=== PATIENT | female | born 1965 | race Caucasian/White ===

== ENCOUNTER 2020-01-07 22:00 | Emergency (ER) | payer MEDICAID ==
--- NOTE | 2020-01-07 23:35 | EDM.PDOC ---
ED [facility] GENERAL MEDICAL PROBLEM - General Chief Complaint: Cardiovascular Problem Stated Complaint: SWELLING IN LOWER LEGS Time Seen by Provider: 01/07/20 22:06 Source of Information: Reports: Patient History Limitations: Reports: No Limitations - History of Present Illness INITIAL COMMENTS - FREE TEXT/NARRATIVE: 54-year-old female with no past medical history presenting with lower extremity edema. Patient reports a 3-month history of intermittent lower extremity edema. She states that she has taken to road trips from [place] to [place] in the past 2 months and notes intermittent swelling of both lower legs. She feels that her left leg is more swollen than the right. She complains of worsening swelling and pain. Patient denies history of venous thromboembolism, hemoptysis, recent surgery or immobilization or long travel, history of active malignancy, or hormonal medication/product usage. No prior history of DVT or PE. No known history of hepatic disease, renal disease. ROS: A 10-point review of systems was negative, except as noted in the HPI (or in the ROS section of this note). Past medical history: Reviewed, no additional pertinent history. Surgical history: Reviewed in system, no additional pertinent history. Social history: Reviewed in system, no additional pertinent history. Family history: Reviewed in system, no additional pertinent history. PHYSICAL EXAM Vital signs reviewed. Nursing notes reviewed. Constitutional: Awake, alert, non-distressed. Head: Normocephalic, atraumatic. Eyes: EOMI, conjunctiva normal, no discharge, no scleral icterus. Ears, Nose, Throat: External ears and nose normal, moist oral mucosa. Cardiovascular: 2+ DP pulses bilaterally, capillary refill less than 2 seconds. Bilateral pitting edema to the bilateral extremities, right greater than left. Pulmonary: normal work of breathing, no accessory muscle use. Abdomen/GI: Soft, nontender, nondistended, no guarding or rigidity, no masses. Musculoskeletal: No deformities. Integumentary: Appropriate color for ethnicity, warm, dry, no pallor or jaundice, no rash. Neurologic: Alert, answering questions appropriately, normal speech, no facial droop, moving all extremities well. Psychiatric: Appropriate mood and affect, normal thought process. Left Lower Leg Pain Score (Numeric/FACES): 6 - Related Data Allergies Allergy/AdvReac Type Severity Reaction Status Date / Time No Known Allergies Allergy Verified 01/07/20 22:18 Home Meds: Home Meds Diclofenac Sodium [Voltaren] 75 mg PO DAILY 01/07/20 [History] Past Medical History Musculoskeletal History: Reports: Back Pain, Chronic, Other (See Below) Other Musculoskeletal History: 2 bulging discs in back Endocrine/Metabolic History: Reports: Obesity/BMI 30+ - Infectious Disease History Infectious Disease History: Reports: Chicken Pox - Past Surgical History Musculoskeletal Surgical History: Reports: Hip Replacement, Other (See Below) Other Musculoskeletal Surgeries/Procedures:: L hip x 3 Social & Family History - Family History Family Medical History: Noncontributory - Tobacco Use Smoking Status *Q: Never Smoker - Recreational Drug Use Recreational Drug Use: No ED ROS GENERAL - Review of Systems Review Of Systems: See Below ED EXAM, GENERAL - Physical Exam Exam: See Below EKG INTERPRETATION EKG Interpretation Comments: 12-Lead ECG Interpretation Acquired: 11:28 PM Rhythm: Sinus rhythm Rate: 72 bpm [place]: Normal Intervals: Normal Ectopy: None Ischemic Changes: None apparent RV Strain: No obvious RV strain pattern. ST Segments/T-Waves: Isolated T wave inversions in lead III Interpretation: Unremarkable Course - Vital Signs Text/Narrative:: Patient hemodynamically stable, afebrile, well-appearing, looks nontoxic. Differential diagnosis includes but is not limited to: DVT, congestive heart failure, hepatic failure, renal failure, nephrotic syndrome, hypothyroidism, myocardial infarction, lymphedema, medication side effect, and many others. hemodynamically stable, afebrile Work-up largely unrevealing. Normal cell lines. Elevated d-dimer with negative bilateral DVT ultrasound study. Electrolytes and renal function are normal. Hepatic markers are normal. Urinalysis shows no proteinuria or blood. Troponin and BNP are within normal limits. Twelve-lead EKG shows no evidence of old myocardial infarction. No evidence of a DVT, low suspicion for congestive heart failure, no evidence of hepatic or renal failure. Urinalysis does not show evidence of nephrotic syndrome. No evidence of a malignant or life-threatening cause of lower extremity edema at this point, symptoms are subacute. Discussed need to follow-up with a primary medical physician for reevaluation in the next few weeks. Discussed compression stockings, leg elevation, limiting sodium and fluid intake, and need for repeat DVT ultrasound study in about 1 week. Plan: Patient is stable to discharge home with outpatient primary care clinic follow-up. Strict emergency department return precautions were provided, patient indicated understanding. All questions were answered prior to departure. Discharged in good condition. Last Recorded V/S: Last Vital Signs Temp 36.2 C 01/07/20 22:09 Pulse 72 01/07/20 23:35 Resp 18 01/07/20 23:35 BP 135/80 01/07/20 23:35 Pulse Ox 97 01/07/20 23:35 - Orders/Labs/Meds Orders: Active Orders 24 hr Category Date Time Status EKG Documentation Completion [RC] STAT Care 01/07/20 23:09 Active Labs: Laboratory Tests 01/07/20 01/07/20 01/07/20 Range/Units 22:40 23:23 23:23 WBC 4.94 (4.0-11.0) K/uL RBC 3.88 L (4.30-5.90) M/uL Hgb 12.0 (12.0-16.0) g/dL Hct 36.1 (36.0-46.0) % MCV 93.0 (80.0-98.0) fL MCH 30.9 (27.0-32.0) pg MCHC 33.2 (31.0-37.0) g/dL RDW Std Deviation 47.4 (28.0-62.0) fl RDW Coeff of Marlys 14 (11.0-15.0) % Plt Count 234 (150-400) K/uL MPV 9.30 (7.40-12.00) fL Neut % (Auto) 61.2 (48.0-80.0) % Lymph % (Auto) 25.7 (16.0-40.0) % [place] % (Auto) 9.1 (0.0-15.0) % Eos % (Auto) 3.8 (0.0-7.0) % Baso % (Auto) 0.2 (0.0-1.5) % Neut # (Auto) 3.0 (1.4-5.7) K/uL Lymph # (Auto) 1.3 (0.6-2.4) K/uL [place] # (Auto) 0.5 (0.0-0.8) K/uL Eos # (Auto) 0.2 (0.0-0.7) K/uL Baso # (Auto) 0.0 (0.0-0.1) K/uL Nucleated RBC % 0.0 /100WBC Nucleated RBCs # 0 K/uL D-Dimer, Quantitative 0.57 H (0.0-0.50) mg/L FEU Sodium (136-145) mmol/L Potassium (3.5-5.1) mmol/L Chloride (98-107) mmol/L Carbon Dioxide (21.0-32.0) mmol/L BUN (7.0-18.0) mg/dL Creatinine (0.6-1.0) mg/dL Est Cr Clr Drug Dosing mL/min Estimated GFR (MDRD) ml/min Glucose (74-106) mg/dL Calcium (8.5-10.1) mg/dL Total Bilirubin (0.2-1.0) mg/dL AST (15-37) IU/L ALT (14-63) IU/L Alkaline Phosphatase (46-116) U/L Troponin I (0.000-0.056) ng/mL B-Natriuretic Peptide (<100) PG/ML Total Protein (6.4-8.2) g/dL Albumin (3.4-5.0) g/dL Globulin (2.6-4.0) g/dL Albumin/Globulin Ratio (0.9-1.6) Urine Color YELLOW Urine Appearance CLEAR Urine pH 6.0 (5.0-8.0) Ur Specific [place] >= 1.030 (1.001-1.035) Urine Protein NEGATIVE (NEGATIVE) mg/dL Urine Glucose (UA) NEGATIVE (NEGATIVE) mg/dL Urine Ketones NEGATIVE (NEGATIVE) mg/dL Urine Occult Blood NEGATIVE (NEGATIVE) Urine Nitrite NEGATIVE (NEGATIVE) Urine Bilirubin NEGATIVE (NEGATIVE) Urine Urobilinogen 0.2 (<2.0) EU/dL Ur Leukocyte Esterase NEGATIVE (NEGATIVE) 01/07/20 01/07/20 Range/Units 23:23 23:23 WBC (4.0-11.0) K/uL RBC (4.30-5.90) M/uL Hgb (12.0-16.0) g/dL Hct (36.0-46.0) % MCV (80.0-98.0) fL MCH (27.0-32.0) pg MCHC (31.0-37.0) g/dL RDW Std Deviation (28.0-62.0) fl RDW Coeff of Marlys (11.0-15.0) % Plt Count (150-400) K/uL MPV (7.40-12.00) fL Neut % (Auto) (48.0-80.0) % Lymph % (Auto) (16.0-40.0) % [place] % (Auto) (0.0-15.0) % Eos % (Auto) (0.0-7.0) % Baso % (Auto) (0.0-1.5) % Neut # (Auto) (1.4-5.7) K/uL Lymph # (Auto) (0.6-2.4) K/uL [place] # (Auto) (0.0-0.8) K/uL Eos # (Auto) (0.0-0.7) K/uL Baso # (Auto) (0.0-0.1) K/uL Nucleated RBC % /100WBC Nucleated RBCs # K/uL D-Dimer, Quantitative (0.0-0.50) mg/L FEU Sodium 142 (136-145) mmol/L Potassium 4.1 (3.5-5.1) mmol/L Chloride 107 (98-107) mmol/L Carbon Dioxide 26.1 (21.0-32.0) mmol/L BUN 13 (7.0-18.0) mg/dL Creatinine 0.9 (0.6-1.0) mg/dL Est Cr Clr Drug Dosing 75.48 mL/min Estimated GFR (MDRD) > 60.0 ml/min Glucose 95 (74-106) mg/dL Calcium 8.5 (8.5-10.1) mg/dL Total Bilirubin 0.3 (0.2-1.0) mg/dL AST 17 (15-37) IU/L ALT 26 (14-63) IU/L Alkaline Phosphatase 54 (46-116) U/L Troponin I < 0.050 (0.000-0.056) ng/mL B-Natriuretic Peptide 67 (<100) PG/ML Total Protein 6.6 (6.4-8.2) g/dL Albumin 3.4 (3.4-5.0) g/dL Globulin 3.2 (2.6-4.0) g/dL Albumin/Globulin Ratio 1.1 (0.9-1.6) Urine Color Urine Appearance Urine pH (5.0-8.0) Ur Specific [place] (1.001-1.035) Urine Protein (NEGATIVE) mg/dL Urine Glucose (UA) (NEGATIVE) mg/dL Urine Ketones (NEGATIVE) mg/dL Urine Occult Blood (NEGATIVE) Urine Nitrite (NEGATIVE) Urine Bilirubin (NEGATIVE) Urine Urobilinogen (<2.0) EU/dL Ur Leukocyte Esterase (NEGATIVE) Departure - Departure Time of Disposition: 01:10 Disposition: Home, Self-Care 01 Condition: Good Clinical Impression: Bilateral lower extremity edema Instructions: Edema, [id number] Referrals: [facility] - Family Practice [Provider Group] - 1 Week (For re-evaluation and possible repeat DVT ultrasound study.) Forms: ED Department Discharge Additional Instructions: You were seen in the emergency department for leg swelling. At this point there is no evidence of a blood clot or trouble with your heart, kidneys, or liver. Your blood work and labs look reassuring. Your blood clotting test was minimally elevated and I typically recommend that people see a primary doctor in about 1 week to have a repeat ultrasound study done to be sure that a new clot does not appear. In the meantime you can elevate your legs at night, you can use 30 mmHg compression stockings (available at medical supply stores or on the internet). I recommend trying to limit the amount of sodium (salt) intake to help with the swelling. Please return the emergency department immediately if your symptoms worsen or if you feel worse. Thank you for choosing the [facility] emergency department in [place] for your medical needs today. It was a pleasure caring for you. The following information is given to patients seen in the emergency department who are being discharged. This information is to outline your options for follow-up care. We provide all patients seen in our emergency department with a follow-up referral. The need for follow-up, as well as the timing and circumstances, are variable depending upon the specifics of your emergency department visit. If you don't have a primary care physician on staff, we will provide you with a referral. We always advise you to contact your personal physician following an emergency department visit to inform them of the circumstance of the visit and for follow-up with them and/or the need for any referrals to a consulting specialist. The emergency department will also refer you to a specialist when appropriate. This referral assures that you have the opportunity for follow-up care with a specialist. All of these measure are taken in an effort to provide you with optimal care, which includes your follow-up. Under all circumstances we always encourage you to contact your private physician who remains a resource for coordinating your care. When calling for follow-up care, please make the office aware that this follow-up is from your recent emergency room visit. If for any reason you are refused follow-up, please contact the [facility] Emergency Department at and asked to speak to the emergency department charge nurse. If you do not have a primary care physician that is caring for you, you can contact these clinics below to set up an appointment to establish care: [facility] - Primary Care [address] [place], [place] [id number] [place] [address] Sepsis Event Note (ED) - Evaluation Sepsis Screening Result: No Definite Risk - Focused Exam Vital Signs: Vital Signs Temp Pulse Resp BP Pulse Ox 01/07/20 23:35 72 18 135/80 97 01/07/20 22:09 36.2 C 75 18 150/74 H 96 - My Orders Last 24 Hours: My Active Orders 01/07/20 23:09 EKG Documentation Completion [RC] STAT - Assessment/Plan Last 24 Hours: My Active Orders 01/07/20 23:09 EKG Documentation Completion [RC] STAT
[2020-01-08 00:05] LABS: BLOOD UREA NITROGEN,BUN 13 mg/dL (7.0-18.0); CARBON DIOXIDE,CO2 26.1 mmol/L (21.0-32.0); CHLORIDE,CL 107 mmol/L (98-107); GLUCOSE RANDOM 95 mg/dL (74-106); POTASSIUM,K 4.1 mmol/L (3.5-5.1); SODIUM,NA 142 mmol/L (136-145)
--- NOTE | 2020-01-08 01:07 | US ---
INDICATION: Lower extremity edema TECHNIQUE: : Ultrasound venous duplex lower extremity bilateral. Compression venous exam was performed using warren-scale, color Doppler, and spectral Doppler imaging. COMPARISON: None available FINDINGS: Some of the images are limited due to body habitus. The bilateral common femoral veins, superficial femoral veins, popliteal veins, and visualized portions of the deep femoral, posterior tibial and peroneal veins, appear fully compressible, demonstrating color Doppler flow, flow variability and augmentation. Hypoechoic foci in regions of some of the compressed veins are reported to be artifactual, extravascular, by the gate technician. IMPRESSION: No definite sonographic evidence of a deep venous thrombosis in the bilateral lower extremities. Dictated by Sergey Pepe MD @ 01/08/2020 1:05:36 AM Dictated by: Sergey Pepe MD @ 01/08/2020 01:05:43 (Electronically Signed)
== END 2020-01-08 01:25 | disposition home or self-care (01) ==
LOC: MW.ED 22:00
DX: R60.0 Localized edema (principal); E66.9 Obesity, unspecified; Z68.39 Body mass index [BMI] 39.0-39.9, adult
CPT/HCPCS: 36415; 80053; 81003; 83880; 84484; 85025; 85379; 93005; 93970; 93970-26; 99282; 99284-25

== ENCOUNTER 2020-01-08 21:21 | Emergency (ER) | payer MEDICAID ==
[2020-01-08] MEDS ORDERED: Acetaminophen 500 MG Tab PO ONE (22:56)
[2020-01-08] MEDS ORDERED: Ibuprofen 400 MG Tab PO ONE (22:56)
--- NOTE | 2020-01-08 23:54 | CR ---
Indication: Patellar pain after fall Technique: Three views Comparison: None Findings: Bones: Alignment is normal. No fractures or bone lesions. Joint spaces: Small patellofemoral osteophytes. Minimal knee effusion. Soft tissues: Mild anterior soft tissue swelling. Dictated by Edgar Velazquez MD @ Jan 08 2020 11:52PM Signed by Dr. Edgar Velazquez @ Jan 08 2020 11:54PM
--- NOTE | 2020-01-08 23:56 | CR ---
Indication: Left hip pain after fall Technique: Three views, 4 films Comparison: None Findings: Status post left total hip replacement. No evidence of dislocation. No evidence of fracture. 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 Dictated by Edgar Velazquez MD @ Jan 08 2020 11:52PM Signed by Dr. Edgar Velazquez @ Jan 08 2020 11:56PM
--- NOTE | 2020-01-09 00:41 | EDM.PDOC ---
ED [facility]PI GENERAL MEDICAL PROBLEM - General Chief Complaint: Back Pain or Injury Stated Complaint: FELL AND HURT KNEE AND BACK Time Seen by Provider: 01/08/20 21:21 Source of Information: Reports: Patient, Old Records History Limitations: Reports: No Limitations - History of Present Illness INITIAL COMMENTS - FREE TEXT/NARRATIVE: 54-year-old female with status post left KIYA presenting with left lower extremity pain. Patient states that approximately 1 hour ago she was pushing a shopping cart when she slipped and fell, landing onto her knees. She arrives to the emergency department complaining of pain to the left knee and the left hip joint. She complains of pain over the superior aspect the left patella and the left medial joint line of the knee. Also complains of pain to the left buttock and the left lateral thigh. She has been able to bear some weight. No self treatment prior to arrival, no other complaints. Past medical history: Reviewed, no additional pertinent history. Surgical history: Reviewed in system, no additional pertinent history. Social history: Reviewed in system, no additional pertinent history. Family history: Reviewed in system, no additional pertinent history. PHYSICAL EXAM Vital signs reviewed. Nursing notes reviewed. Constitutional: Awake, alert, non-distressed. Head: Normocephalic, atraumatic. Eyes: EOMI, conjunctiva normal, no discharge, no scleral icterus. Ears, Nose, Throat: External ears and nose normal, moist oral mucosa. Cardiovascular: 2+ left DP pulse, capillary refill less than 2 seconds. Pulmonary: normal work of breathing, no accessory muscle use. Abdomen/GI: Soft, nontender, nondistended, no guarding or rigidity, no masses. Musculoskeletal: No deformities. Mild tenderness to palpation to the left knee at the anterior aspect of the medial joint line in the superior aspect of the left patella. Mild tenderness to palpation of the left lateral thigh and the left SI joint. Normal active range of motion of the left hip and knee joint. Back: Lumbar spine nontender Integumentary: Appropriate color for ethnicity, warm, dry, no pallor or jaundice, no rash. Neurologic: Alert, answering questions appropriately, normal speech, no facial droop, moving all extremities well. Sensation intact to light touch the left lower extremity. Psychiatric: Appropriate mood and affect, normal thought process. left knee Pain Score (Numeric/FACES): 7 - Related Data Allergies Allergy/AdvReac Type Severity Reaction Status Date / Time No Known Allergies Allergy Verified 01/08/20 21:53 Home Meds: Home Meds Diclofenac Sodium [Voltaren] 75 mg PO DAILY 01/07/20 [History] Past Medical History HEENT History: Reports: None Cardiovascular History: Reports: None Respiratory History: Reports: None Gastrointestinal History: Reports: None Genitourinary History: Reports: None ADMITTING OFFICE ESCORT History: Reports: None Musculoskeletal History: Reports: Back Pain, Chronic, Other (See Below) Other Musculoskeletal History: 2 bulging discs in back Neurological History: Reports: None Psychiatric History: Reports: None Endocrine/Metabolic History: Reports: Obesity/BMI 30+ 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 Hematologic History: Reports: None Immunologic History: Reports: None Oncologic (Cancer) History: Reports: None Dermatologic History: Reports: None - Infectious Disease History Infectious Disease History: Reports: None - Past Surgical History Head Surgeries/Procedures: Reports: None Female Surgical History: Reports: None Musculoskeletal Surgical History: Reports: Hip Replacement, Other (See Below) Other Musculoskeletal Surgeries/Procedures:: L hip x 3 Social & Family History - Family History Family Medical History: Noncontributory - Tobacco Use Smoking Status *Q: Never Smoker - Caffeine Use Caffeine Use: Reports: None - Recreational Drug Use Recreational Drug Use: No Review of Systems - Review of Systems Review Of Systems: See Below ED EXAM, GENERAL - Physical Exam Exam: See Below Course - Vital Signs Text/Narrative:: Patient hemodynamically stable, afebrile, well-appearing, looks nontoxic. Differential diagnosis includes but is not limited to: Fracture, dislocation, soft tissue injury, vascular injury, nerve injury, and many others. Neurovascularly intact in the left lower extremity. No sign of vascular compromise. No gross deformity. No evidence of wounds or soft tissue injury. Obtained x-rays of the left knee and the left hip. Left hip x-rays are unremarkable, surgical hardware appears stable. Small joint effusion around the left knee. Small amount of soft tissue swelling around the knee as well. No evidence of bony injury of the knee such as a fracture or dislocation. Patient has been able to bear weight although with pain. We will apply an elastic wrap to the left knee joint. She is stable to discharge home with [id number] Tylenol and Motrin as needed for pain. We will instruct her to follow-up with a primary medical doctor in the next few days for reevaluation if her symptoms do not improve. Plan: Patient is stable to discharge home with outpatient primary care clinic follow-up. Strict emergency department return precautions were provided, patient indicated understanding. All questions were answered prior to departure. Discharged in good condition. Last Recorded V/S: Last Vital Signs Temp 36.0 C L 01/08/20 21:53 Pulse 102 H 01/08/20 21:53 Resp 18 01/08/20 21:53 BP 139/87 01/08/20 21:53 Pulse Ox 95 01/08/20 21:53 - Orders/Labs/Meds Orders: Active Orders 24 hr Category Date Time Status Elastic Wrap [OM.PC] Stat Oth 01/09/20 00:36 Ordered Meds: Medications Discontinued Medications Generic Name Dose Route Start Last Admin Trade Name Freq PRN Reason Stop Dose Admin Acetaminophen 1,000 mg 01/08/20 22:56 01/08/20 23:24 Tylenol Extra Strength PO 01/08/20 22:57 1,000 mg ONETIME ONE Administration Ibuprofen 400 mg 01/08/20 22:56 01/08/20 23:24 Motrin PO 01/08/20 22:57 400 mg ONETIME ONE Administration Departure - Departure Time of Disposition: 00:39 Disposition: Home, Self-Care 01 Condition: Good Clinical Impression: Acute pain of left knee, Acute pain of left hip Accidental fall Qualifiers: Encounter type: initial encounter Qualified Code(s): W19.XXXA - Unspecified fall, initial encounter - Discharge Information *PRESCRIPTION DRUG MONITORING PROGRAM REVIEWED*: Not Applicable *COPY OF PRESCRIPTION DRUG MONITORING REPORT IN PATIENT CHIN: Not Applicable Instructions: Acute Knee Pain, Adult, Hip Pain, Musculoskeletal Pain, Joint Pain Referrals: [facility] - Family Practice [Provider Group] - 1 Week (As needed, if symptoms do not improve.) Additional Instructions: You were seen in the emergency department for left hip and knee pain after a fall. Your x-rays do not show broken bone but you do have some swelling around the left knee joint. This is not uncommon after a fall onto your knees. There is no evidence of a broken bone and we do not need to put you in a splint but we will wrap your left knee for comfort and to help control swelling. You can take [id number] Tylenol or Motrin as directed on the package for pain. Please follow-up with a family medicine clinic in the next 1 to 2 weeks if your symptoms do not improve. Please return the emergency department immediately if your symptoms worsen or if you feel worse. Thank you for choosing the [facility] emergency department in [place] for your medical needs today. It was a pleasure caring for you. The following information is given to patients seen in the emergency department who are being discharged. This information is to outline your options for fo llow-up care. We provide all patients seen in our emergency department with a follow-up referral. The need for follow-up, as well as the timing and circumstances, are variable depending upon the specifics of your emergency department visit. If you don't have a primary care physician on staff, we will provide you with a referral. We always advise you to contact your personal physician following an emergency department visit to inform them of the circumstance of the visit and for follow-up with them and/or the need for any referrals to a consulting specialist. The emergency department will also refer you to a specialist when appropriate. This referral assures that you have the opportunity for follow-up care with a specialist. All of these measure are taken in an effort to provide you with optimal care, which includes your follow-up. Under all circumstances we always encourage you to contact your private physician who remains a resource for coordinating your care. When calling for follow-up care, please make the office aware that this follow-up is from your recent emergency room visit. If for any reason you are refused follow-up, please contact the [facility] Emergency Department at and asked to speak to the emergency department charge nurse. If you do not have a primary care physician that is caring for you, you can contact these clinics below to set up an appointment to establish care: [facility] - Primary Care [address] [place] [address] [facility] [address] [place] [address] Sepsis Event Note (ED) - Evaluation Sepsis Screening Result: No Definite Risk - Focused Exam Vital Signs: Vital Signs Temp Pulse Resp BP Pulse Ox 01/08/20 21:53 36.0 C L 102 H 18 139/87 95 - My Orders Last 24 Hours: My Active Orders 01/09/20 00:36 Elastic Wrap [OM.PC] Stat - Assessment/Plan Last 24 Hours: My Active Orders 01/09/20 00:36 Elastic Wrap [OM.PC] Stat
== END 2020-01-09 00:48 | disposition home or self-care (01) ==
LOC: MW.ED 21:21
DX: M25.562 Pain in left knee (principal); M25.552 Pain in left hip; M79.652 Pain in left thigh; M53.3 Sacrococcygeal disorders, not elsewhere classified; E66.9 Obesity, unspecified; W01.0XXA Fall on same level from slipping, tripping and stumbling without subsequent striking against object, initial encounter
CPT/HCPCS: 73502; 73562; 99283; A9270; 99282

== ENCOUNTER 2020-01-17 18:02 | Emergency (ER) | payer MEDICAID ==
--- NOTE | 2020-01-17 19:02 | EDM.PDOC ---
ED HPI GENERAL MEDICAL PROBLEM - General Chief Complaint: Lower Extremity Injury/Pain Stated Complaint: LT KNEE PAIN Time Seen by Provider: 01/17/20 19:00 Source of Information: Reports: Patient History Limitations: Reports: No Limitations - History of Present Illness INITIAL COMMENTS - FREE TEXT/NARRATIVE: HISTORY AND PHYSICAL: History of present illness: Patient is a 54-year-old female who presents to the emergency room with complaints of left knee pain. She states approximately a week ago she was pushing a shopping cart and had fallen onto her knees. She denies hitting her head or having any loss of consciousness. She was seen in the emergency room and had an x-ray of the knee and hip which were both negative. She states that the pain has continued and she feels a burning sensation to the medial aspect of the knee. She has been ambulatory and able to bear weight although this does aggravate the pain. Patient denies any fever, chills, headache, change in vis ion, syncope or near syncope. Denies any chest pain, back pain, shortness of breath or cough. Denies any GI or symptoms. Patient has been eating and drinking appropriately. Review of systems: As per history of present illness and below otherwise all systems reviewed and negative. Past medical history: As per history of present illness and as reviewed below otherwise noncontributory. Surgical history: As per history of present illness and as reviewed below otherwise noncontributory. Social history: See social history for further information Family history: As per history of present illness and as reviewed below otherwise noncontributory. Physical exam: General: Well developed and well nourished. Alert and orientated x 3. Nontoxic in appearance and in no acute distress. Vital signs are stable and have been reviewed by me. Nursing notes were reviewed. HEENT: Atraumatic, normocephalic, pupils equal and reactive bilaterally, negative for conjunctival pallor or scleral icterus, mucous membranes moist, TMs normal bilaterally, throat clear, neck supple, nontender, trachea midline. No drooling or trismus noted. No meningeal signs. No hot potato voice noted. Lungs: Clear to auscultation, breath sounds equal bilaterally, chest nontender. Normal work of breathing, no accessory muscles used. Heart: S1S2, regular rate and rhythm without overt murmur Abdomen: Soft, nondistended, nontender. Negative for masses or hepatosplenomegaly. Negative for costovertebral tenderness. Skin: Intact, warm, dry. No lesions or rashes noted. Hematologic: No petechiae or purpra. Mucosa appropriate color and normal nail bed color and refill. Extremities: Atraumatic, moves all extremities per self without difficulty or deficits, pain with palpation of the left medial aspect of knee. Mild popliteal tenderness. Strong pedal and pretibial pulse. + CMS, negative for cords or calf pain. Neurovascular unremarkable. Neuro: Awake, alert, oriented. Cranial nerves II through XII unremarkable. Ce rebellum unremarkable. Motor and sensory unremarkable throughout. Exam nonfocal. Psychiatric: Mood and affect are appropriate. Normal thought process. Answering questions appropriately. Notes: X-ray shows no acute findings. We did discuss the likelihood of her needing further imaging such as an MRI as outpatient. Crutches given so patient can be nonweightbearing until followed up with orthopedics. Reassessment at the time of disposition demonstrates that the patient is in no acute distress. The patient has remained stable throughout the entire ED visit and is without objective evidence for acute process requiring urgent intervention or hospitalization. The patient is stable for discharge, counseling was provided and we discussed in great detail signs and symptoms that would prompt them to return to the Emergency Department. Medication, follow up and supportive care measures were reviewed and discussed. Voices understanding and is agreeable to plan of care. Denies any further questions or concerns at this time. Diagnostics: Knee x-ray Therapeutics: Crutches Prescription: Tramadol Impression: Knee injury, Left Plan: 1. Your x-ray is normal. You may need an MRI as an outpatient, please establish care so you can have this ordered if you continue to have pain. Rest, ice, elevate the affected extremity. Please use the crutches as directed. 2. Tylenol and/or Ibuprofen as needed for pain management. 3. Follow up with the Orthopedic provider as we discussed. Return to the ED as needed and as discussed. Definitive disposition and diagnosis as appropriate pending reevaluation and review of above. 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 Musculoskeletal History: Reports: Back Pain, Chronic, Other (See Below) Other Musculoskeletal History: 2 bulging discs in back Neurological History: Reports: None Psychiatric History: Reports: None Endocrine/Metabolic History: Reports: Obesity/BMI 30+ 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 Hematologic History: Reports: None Immunologic History: Reports: None Oncologic (Cancer) History: Reports: None Dermatologic History: Reports: None - Infectious Disease History Infectious Disease History: Reports: Chicken Pox - Past Surgical History Head Surgeries/Procedures: Reports: None Female Surgical History: Reports: None Musculoskeletal Surgical History: Reports: Hip Replacement, Other (See Below) Other Musculoskeletal Surgeries/Procedures:: L hip x 3 Social & Family History - Family History Family Medical History: Noncontributory - Caffeine Use Caffeine Use: Reports: Coffee - Recreational Drug Use Recreational Drug Use: No Review of Systems - Review of Systems Review Of Systems: Comprehensive ROS is negative, except as noted in HPI. ED EXAM, GENERAL - Physical Exam Exam: See Below (See dictation) Course - Vital Signs Last Recorded V/S: Last Vital Signs Temp 98.6 F 01/17/20 18:35 Pulse 89 01/17/20 18:35 Resp 20 01/17/20 18:35 BP 149/92 H 01/17/20 18:35 Pulse Ox 92 L 01/17/20 18:35 - Orders/Labs/Meds Orders: Active Orders 24 hr Category Date Time Status DME for Discharge [COMM] Stat Oth 01/17/20 19:03 Ordered Meds: Medications Discontinued Medications Generic Name Dose Route Start Last Admin Trade Name Freq PRN Reason Stop Dose Admin Hydrocodone Bitart/Acetaminophen 1 tab 01/17/20 19:03 01/17/20 19:17 [place] 325-5 Mg PO 01/17/20 19:04 1 tab ONETIME ONE Administration Departure - Departure Time of Disposition: 20:10 Disposition: Home, Self-Care 01 Clinical Impression: Left knee injury Qualifiers: Encounter type: subsequent encounter Qualified Code(s): S89.92XD - Unspecified injury of left lower leg, subsequent encounter - Discharge Information Instructions: Knee Sprain, Adult, [id number] Referrals: PCP,None [Primary Care Provider] - Forms: ED Department Discharge Additional Instructions: The following information is given to patients seen in the emergency department who are being discharged to home. This information is to outline your options for follow-up care. We provide all patients seen in our emergency department with a follow-up referral. The need for follow-up, as well as the timing and circumstances, are variable depending upon the specifics of your emergency department visit. If you don't have a primary care physician on staff, we will provide you with a referral. We always advise you to contact your personal physician following an emergency department visit to inform them of the circumstance of the visit and for follow-up with them and/or the need for any referrals to a consulting specialist. The emergency department will also refer you to a specialist when appropriate. This referral assures that you have the opportunity for follow-up care with a specialist. All of these measure are taken in an effort to provide you with optimal care, which includes your follow-up. Under all circumstances we always encourage you to contact your private physician who remains a resource for coordinating your care. When calling for follow-up care, please make the office aware that this follow-up is from your recent emergency room visit. If for any reason you are refused follow-up, please contact the [facility] Emergency Department at and asked to speak to the emergency department charge nurse. [facility] Primary Care [address] [place] [address] [place] [address] Thank you for choosing the [facility] emergency department in [place] for your medical needs today. It was a pleasure caring for you. Today you were seen in the emergency department for knee pain. 1. Your x-ray is normal. You may need an MRI as an outpatient, please establish care so you can have this ordered if you continue to have pain. Rest, ice, elevate the affected extremity. Please use the crutches as directed. 2. Tylenol and/or Ibuprofen as needed for pain management. 3. Follow up with the Orthopedic provider as we discussed. Return to the ED as needed and as discussed. Sepsis Event Note (ED) - Evaluation Sepsis Screening Result: No Definite Risk - Focused Exam Vital Signs: Vital Signs Temp Pulse Resp BP Pulse Ox 01/17/20 18:35 98.6 F 89 20 149/92 H 92 L - My Orders Last 24 Hours: My Active Orders 01/17/20 19:03 DME for Discharge [COMM] Stat - Assessment/Plan Last 24 Hours: My Active Orders 01/17/20 19:03 DME for Discharge [COMM] Stat
[2020-01-17] MEDS ORDERED: Acetaminophen/HYDROcodone 325-5 MG Tab PO ONE (19:03)
--- NOTE | 2020-01-17 20:05 | CR ---
INDICATION: Knee pain, worse in popliteal area. TECHNIQUE: Knee radiographs 3 views COMPARISON: Left knee series dated 01/08/2020. FINDINGS: Bones: Alignment is normal. No acute fractures or aggressive osseous lesions seen. Joint spaces: Trace left knee joint effusion. There is mild joint space narrowing of the medial and patellofemoral compartments with minimal degree of tibial spurring. Soft tissues: Unremarkable. No radiopaque foreign bodies are noted. IMPRESSION: 1. Minimal degenerative changes of left knee with tiny left knee joint effusion. No acute osseous injury. 2. If concern for popliteal cyst, consider targeted ultrasound evaluation. Dictated by Garland Bruce MD @ 01/17/2020 8:03:35 PM Dictated by: Garland Bruce MD @ 01/17/2020 20:03:39 (Electronically Signed)
== END 2020-01-17 20:50 | disposition home or self-care (01) ==
LOC: MW.ED 18:02
DX: S89.92XA Unspecified injury of left lower leg, initial encounter (principal); E66.9 Obesity, unspecified; Z79.899 Other long term (current) drug therapy; Z68.38 Body mass index [BMI] 38.0-38.9, adult; X50.9XXA Other and unspecified overexertion or strenuous movements or postures, initial encounter
CPT/HCPCS: 73562; 99283; A9270

== ENCOUNTER 2020-02-06 10:46 | Inpatient (IN) | payer OTHER ==
[2020-02-06] MEDS ORDERED: Sodium Chloride 0.9% 2.5 ML Syringe FLUSH PRN (10:57)
[2020-02-06] MEDS ORDERED: Sodium Chloride 0.9% 10 ML Syringe FLUSH PRN (10:57)
--- NOTE | 2020-02-06 10:57 | EDM.PDOC ---
ED HPI GENERAL MEDICAL PROBLEM - General Chief Complaint: Chest Pain Stated Complaint: CHEST PAINS/FEVER Time Seen by Provider: 02/06/20 10:55 Source of Information: Reports: Patient History Limitations: Reports: No Limitations - History of Present Illness INITIAL COMMENTS - FREE TEXT/NARRATIVE: HISTORY AND PHYSICAL: History of present illness: Patient is a 54-year-old female who presents to the emergency room with complaints of chest tightness, shortness of breath, fever, nausea, intermittent diarrhea and loss of appetite. She states she has been up to the hospital multiple times due to an orthopedic injury and is concerned that she has been exposed to COVID-19 from her frequent visits to our facility. States other family members in her home have also had similar symptoms. She is complaining of the sensation of chest heaviness, points to her low sternum. This pain does not radiate anywhere. Nothing makes the pain better or worse. She also complains of shortness of breath with daily/routine activities. She has had decreased appetite associated with nausea and intermittent loose stools. She has also had intermittent fevers, last night was 101, currently afebrile. Patient denies any headache, change in vision, syncope or near syncope. Denies any neck stiffness/pain, back pain, abdominal pain, vomiting, constipation or dysuria. Has not noted any blood in urine or stool. Denies any chance of . Patient has been eating and drinking appropriately. Review of systems: As per history of present illness and below otherwise all systems reviewed and negative. Past medical history: As per history of present illness and as reviewed below otherwise noncontributory. Surgical history: As per history of present illness and as reviewed below otherwise noncontributory. Social history: See social history for further information Family history: As per history of present illness and as reviewed below otherwise noncontributory. Physical exam: General: Well developed and well nourished 54 year old female. Alert and orientated x 3. Nontoxic in appearance and in no acute distress. Vital signs are stable and have been reviewed by me. Nursing notes were reviewed. HEENT: Atraumatic, normocephalic, pupils equal and reactive bilaterally, negative for conjunctival pallor or scleral icterus, mucous membranes moist, TMs normal bilaterally, throat clear, neck supple, nontender, trachea midline. No drooling or trismus noted. No meningeal signs. No hot potato voice noted. Lungs: Clear to auscultation, breath sounds equal bilaterally, chest nontender. Normal work of breathing, no accessory muscles used. Dry nonproductive cough noted. Heart: S1S2, regular rate and rhythm without overt murmur Abdomen: Soft, nondistended, nontender. Negative for masses or hepatosplenomegaly. Negative for costovertebral tenderness. Skin: Intact, warm, dry. No lesions or rashes noted. Hematologic: No petechiae or purpra. Mucosa appropriate color and normal nail bed color and refill. Extremities: Atraumatic, moves all extremities per self without difficulty or deficits, negative for cords or calf pain. Neurovascular unremarkable. Neuro: Awake, alert, oriented. Cranial nerves II through XII unremarkable. Cerebellum unremarkable. Motor and sensory unremarkable throughout. Exam nonfocal. Psychiatric: Mood and affect are appropriate. Normal thought process. Answering questions appropriately. Notes: CXR shows no acute findings. Patient's oxygen saturation goes between 86-93% on RA. We did place her on 1 liter per NC and sats have been above 93%. Dr. Givens was consulted on this case. She is agreeable for keeping this patient for further care and management. CT of the chest pending. Diagnostics: CBC, CMP, troponin, EKG, COVID-19, chest x-ray, lipase, UA Therapeutics: Aspirin, Zofran, NS Impression: COVID-19 Definitive disposition and diagnosis as appropriate pending reevaluation and review of above. 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 Musculoskeletal History: Reports: Back Pain, Chronic, Other (See Below) Other Musculoskeletal History: 2 bulging discs in back Neurological History: Reports: None Psychiatric History: Reports: None Endocrine/Metabolic History: Reports: Obesity/BMI 30+ 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 Hematologic History: Reports: None Immunologic History: Reports: None Oncologic (Cancer) History: Reports: None Dermatologic History: Reports: None - Infectious Disease History Infectious Disease History: Reports: Chicken Pox - Past Surgical History Head Surgeries/Procedures: Reports: None Female Surgical History: Reports: None Musculoskeletal Surgical History: Reports: Hip Replacement, Other (See Below) Other Musculoskeletal Surgeries/Procedures:: L hip x 3 Social & Family History - Family History Family Medical History: Noncontributory - Caffeine Use Caffeine Use: Reports: Coffee ED ROS GENERAL - Review of Systems Review Of Systems: Comprehensive ROS is negative, except as noted in HPI. ED EXAM, GENERAL - Physical Exam Exam: See Below (Dictation) Course - Vital Signs Last Recorded V/S: Last Vital Signs Temp 97.8 F 02/06/20 17:00 Pulse 100 02/06/20 17:00 Resp 16 02/06/20 17:00 BP 153/87 H 02/06/20 17:00 Pulse Ox 94 L 02/06/20 17:00 - Orders/Labs/Meds Orders: Active Orders 24 hr Category Date Time Status Admission Status [Patient Status] [ADT] Stat ADT 02/06/20 14:33 Active Cardiac Monitoring [RC] . DIRECTED Care 02/06/20 10:57 Active Sodium Chloride 0.9% [Saline Flush] Med 02/06/20 10:57 Active 10 ml FLUSH ASDIRECTED PRN Sodium Chloride 0.9% [Saline Flush] Med 02/06/20 10:57 Active 2.5 ml FLUSH ASDIRECTED PRN Saline Lock Insert [OM.PC] Stat Oth 02/06/20 10:57 Ordered Medication Orders Acetaminophen (Tylenol) 650 mg PO Q4H PRN PRN Reason: Pain (Mild 1-3)/fever Albuterol/Ipratropium (Combivent Respimat) 0 gm INH Q4H PRN PRN Reason: Dyspnea Dexamethasone (Dexamethasone) 6 mg PO DAILY [facility] Last Admin: 02/06/20 17:21 Dose: 6 mg Documented by: VIN Enoxaparin Sodium (Lovenox) 40 mg SUBCUT Q12H JOSÉ MIGUEL Last Admin: 02/06/20 17:22 Dose: 40 mg Documented by: VIN Morphine Sulfate (Morphine) 1 mg IVPUSH Q6H PRN PRN Reason: Pain Ondansetron HCl (Zofran) 4 mg IVPUSH Q4H PRN PRN Reason: Nausea/Vomiting Pantoprazole Sodium (Protonix Iv) 40 mg IV DAILY JOSÉ MIGUEL Sodium Chloride (Saline Flush) 10 ml FLUSH ASDIRECTED PRN PRN Reason: Keep Vein Open Sodium Chloride (Saline Flush) 2.5 ml FLUSH ASDIRECTED PRN PRN Reason: Keep Vein Open Labs: Laboratory Tests 02/06/20 02/06/20 02/06/20 Range/Units 11:20 11:20 11:55 WBC 3.96 L (4.0-11.0) K/uL RBC 4.14 L (4.30-5.90) M/uL Hgb 12.8 (12.0-16.0) g/dL Hct 38.7 (36.0-46.0) % MCV 93.5 (80.0-98.0) fL MCH 30.9 (27.0-32.0) pg MCHC 33.1 (31.0-37.0) g/dL RDW Std Deviation 49.0 (28.0-62.0) fl RDW Coeff of Marlys 14 (11.0-15.0) % Plt Count 160 (150-400) K/uL MPV 10.00 (7.40-12.00) fL Neut % (Auto) 73.2 (48.0-80.0) % Lymph % (Auto) 15.4 L (16.0-40.0) % Hale % (Auto) 10.6 (0.0-15.0) % Eos % (Auto) 0.8 (0.0-7.0) % Baso % (Auto) 0.0 (0.0-1.5) % Neut # (Auto) 2.9 (1.4-5.7) K/uL Lymph # (Auto) 0.6 (0.6-2.4) K/uL Hale # (Auto) 0.4 (0.0-0.8) K/uL Eos # (Auto) 0.0 (0.0-0.7) K/uL Baso # (Auto) 0.0 (0.0-0.1) K/uL Nucleated RBC % 0.0 /100WBC Nucleated RBCs # 0 K/uL D-Dimer, Quantitative (0.0-0.50) mg/L FEU Lactate 0.6 (0.20-2.00) mmol/L Sodium 140 (136-145) mmol/L Potassium 3.8 (3.5-5.1) mmol/L Chloride 105 (98-107) mmol/L Carbon Dioxide 27.3 (21.0-32.0) mmol/L BUN 9 (7.0-18.0) mg/dL Creatinine 0.9 (0.6-1.0) mg/dL Est Cr Clr Drug Dosing 72.94 mL/min Estimated GFR (MDRD) > 60.0 ml/min Glucose 98 (74-106) mg/dL Calcium 7.8 L (8.5-10.1) mg/dL Total Bilirubin 0.4 (0.2-1.0) mg/dL AST 40 H (15-37) IU/L ALT 65 H (14-63) IU/L Alkaline Phosphatase 63 (46-116) U/L Troponin I < 0.050 (0.000-0.056) ng/mL Total Protein 7.1 (6.4-8.2) g/dL Albumin 3.5 (3.4-5.0) g/dL Globulin 3.6 (2.6-4.0) g/dL Albumin/Globulin Ratio 1.0 (0.9-1.6) Lipase 68 L (73-393) U/L Urine Color Urine Appearance Urine pH (5.0-8.0) Ur Specific [place] (1.001-1.035) Urine Protein (NEGATIVE) mg/dL Urine Glucose (UA) (NEGATIVE) mg/dL Urine Ketones (NEGATIVE) mg/dL Urine Occult Blood (NEGATIVE) Urine Nitrite (NEGATIVE) Urine Bilirubin (NEGATIVE) Urine Urobilinogen (<2.0) EU/dL Ur Leukocyte Esterase (NEGATIVE) SARS-CoV-2 RNA (ARMANI) (NEGATIVE) 02/06/20 02/06/20 02/06/20 Range/Units 11:55 12:15 12:20 WBC (4.0-11.0) K/uL RBC (4.30-5.90) M/uL Hgb (12.0-16.0) g/dL Hct (36.0-46.0) % MCV (80.0-98.0) fL MCH (27.0-32.0) pg MCHC (31.0-37.0) g/dL RDW Std Deviation (28.0-62.0) fl RDW Coeff of Marlys (11.0-15.0) % Plt Count (150-400) K/uL MPV (7.40-12.00) fL Neut % (Auto) (48.0-80.0) % Lymph % (Auto) (16.0-40.0) % Hale % (Auto) (0.0-15.0) % Eos % (Auto) (0.0-7.0) % Baso % (Auto) (0.0-1.5) % Neut # (Auto) (1.4-5.7) K/uL Lymph # (Auto) (0.6-2.4) K/uL Hale # (Auto) (0.0-0.8) K/uL Eos # (Auto) (0.0-0.7) K/uL Baso # (Auto) (0.0-0.1) K/uL Nucleated RBC % /100WBC Nucleated RBCs # K/uL D-Dimer, Quantitative 0.85 H (0.0-0.50) mg/L FEU Lactate (0.20-2.00) mmol/L Sodium (136-145) mmol/L Potassium (3.5-5.1) mmol/L Chloride (98-107) mmol/L Carbon Dioxide (21.0-32.0) mmol/L BUN (7.0-18.0) mg/dL Creatinine (0.6-1.0) mg/dL Est Cr Clr Drug Dosing mL/min Estimated GFR (MDRD) ml/min Glucose (74-106) mg/dL Calcium (8.5-10.1) mg/dL Total Bilirubin (0.2-1.0) mg/dL AST (15-37) IU/L ALT (14-63) IU/L Alkaline Phosphatase (46-116) U/L Troponin I (0.000-0.056) ng/mL Total Protein (6.4-8.2) g/dL Albumin (3.4-5.0) g/dL Globulin (2.6-4.0) g/dL Albumin/Globulin Ratio (0.9-1.6) Lipase (73-393) U/L Urine Color YELLOW Urine Appearance CLEAR Urine pH 5.5 (5.0-8.0) Ur Specific [place] 1.020 (1.001-1.035) Urine Protein NEGATIVE (NEGATIVE) mg/dL Urine Glucose (UA) NEGATIVE (NEGATIVE) mg/dL Urine Ketones NEGATIVE (NEGATIVE) mg/dL Urine Occult Blood NEGATIVE (NEGATIVE) Urine Nitrite NEGATIVE (NEGATIVE) Urine Bilirubin NEGATIVE (NEGATIVE) Urine Urobilinogen 0.2 (<2.0) EU/dL Ur Leukocyte Esterase NEGATIVE (NEGATIVE) SARS-CoV-2 RNA (ARMANI) POSITIVE H (NEGATIVE) Meds: Medications Generic Name Dose Route Start Last Admin Trade Name Freq PRN Reason Stop Dose Admin Acetaminophen 650 mg 02/06/20 15:27 Tylenol PO Q4H PRN Pain (Mild 1-3)/fever Albuterol/Ipratropium 0 gm 02/06/20 15:31 Combivent Respimat INH Q4H PRN Dyspnea Dexamethasone 6 mg 02/06/20 15:30 02/06/20 17:21 Dexamethasone PO 6 mg DAILY JOSÉ MIGUEL Administration Enoxaparin Sodium 40 mg 02/06/20 15:30 02/06/20 17:22 Lovenox SUBCUT 40 mg Q12H JOSÉ MIGUEL Administration Morphine Sulfate 1 mg 02/06/20 18:18 Morphine IVPUSH Q6H PRN Pain Ondansetron HCl 4 mg 02/06/20 15:27 Zofran IVPUSH Q4H PRN Nausea/Vomiting Pantoprazole Sodium 40 mg 02/07/20 09:00 Protonix Iv IV DAILY JOSÉ MIGUEL Sodium Chloride 10 ml 02/06/20 10:57 Saline Flush FLUSH ASDIRECTED PRN Keep Vein Open Sodium Chloride 2.5 ml 02/06/20 10:57 Saline Flush FLUSH ASDIRECTED PRN Keep Vein Open Discontinued Medications Generic Name Dose Route Start Last Admin Trade Name Frenolberto PRN Reason Stop Dose Admin Aspirin 324 mg 02/06/20 11:19 02/06/20 12:16 Aspirin PO 02/06/20 11:20 324 mg ONETIME ONE Administration Sodium Chloride 1,000 mls @ 999 mls/hr 02/06/20 11:19 02/06/20 12:16 Normal Saline IV 02/06/20 12:19 999 mls/hr STAT ONE Administration Remdesivir 200 mg/ Sodium 250 mls @ 250 mls/hr 02/06/20 15:30 02/06/20 17:51 Chloride IV 02/06/20 15:31 Not Given ONETIME ONE Remdesivir 100 mg/ Sodium 100 mls @ 100 mls/hr 02/07/20 09:00 Chloride IV Q24H JOSÉ MIGUEL Iopamidol 100 ml 02/06/20 15:36 02/06/20 15:36 Isovue-370 (76%) IVPUSH 02/06/20 15:37 100 ml ONETIME ONE Administration Ondansetron HCl 4 mg 02/06/20 11:19 02/06/20 12:16 Zofran IVPUSH 02/06/20 11:20 4 mg ONETIME ONE Administration Departure - Departure Time of Disposition: 21:59 Disposition: Admitted As Inpatient 64 Clinical Impression: COVID-19 Sepsis Event Note (ED) - Focused Exam Vital Signs: Vital Signs Temp Pulse Resp BP Pulse Ox 02/06/20 13:20 85 02/06/20 12:08 92 155/87 H 90 L 02/06/20 11:38 90 16 159/90 H 95 02/06/20 10:56 96.2 F L 100 16 151/73 H 93 L - My Orders Last 24 Hours: My Active Orders 02/06/20 10:57 Cardiac Monitoring [RC] . DIRECTED Sodium Chloride 0.9% [Saline Flush] 10 ml FLUSH ASDIRECTED PRN Sodium Chloride 0.9% [Saline Flush] 2.5 ml FLUSH ASDIRECTED PRN Saline Lock Insert [OM.PC] Stat 02/06/20 14:33 Admission Status [Patient Status] [ADT] Stat - Assessment/Plan Last 24 Hours: My Active Orders 02/06/20 10:57 Cardiac Monitoring [RC] . DIRECTED Sodium Chloride 0.9% [Saline Flush] 10 ml FLUSH ASDIRECTED PRN Sodium Chloride 0.9% [Saline Flush] 2.5 ml FLUSH ASDIRECTED PRN Saline Lock Insert [OM.PC] Stat 02/06/20 14:33 Admission Status [Patient Status] [ADT] Stat
[2020-02-06] MEDS ORDERED: Ondansetron 4 MG/2 ML SDV IVPUSH ONE (11:19)
[2020-02-06] MEDS ORDERED: Aspirin 81 MG Tab.Chew PO ONE (11:19)
[2020-02-06] MEDS ORDERED: Sodium Chloride 0.9% 1,000 ML IV ONE (11:19)
--- NOTE | 2020-02-06 11:37 | PCM.SN.2 ---
EKG INTERPRETATION EKG Date: 02/06/20 Time: 11:00 Rhythm: NSR Rate (Beats/Min): 93 [place]: Normal P-Wave: Present QRS: Normal ST-T: Normal QT: Normal
--- NOTE | 2020-02-06 11:55 | CR ---
Indication: Chest pain. Technique: AP portable view of the chest. Comparison: None Findings: The heart is borderline in size. The right hemidiaphragm is elevated. Mild diffusely increased interstitial opacities are identified bilaterally, partially technical in nature. No pleural effusion or pneumothorax identified. Impression: No acute cardiopulmonary process Dictated by Maddison Augustin MD @ Feb 06 2020 11:53AM Signed by Dr. Maddison Augustin @ Feb 06 2020 11:54AM
[2020-02-06 11:59] LABS: BLOOD UREA NITROGEN,BUN 9 mg/dL (7.0-18.0); CARBON DIOXIDE,CO2 27.3 mmol/L (21.0-32.0); CHLORIDE,CL 105 mmol/L (98-107); GLUCOSE RANDOM 98 mg/dL (74-106); LIPASE 68 U/L (73-393); POTASSIUM,K 3.8 mmol/L (3.5-5.1); SODIUM,NA 140 mmol/L (136-145)
[2020-02-06] MEDS ORDERED: Ondansetron 4 MG/2 ML SDV IVPUSH PRN (15:27)
[2020-02-06] MEDS ORDERED: Acetaminophen 325 MG Tab PO PRN (15:27)
[2020-02-06] MEDS ORDERED: REMDESIVIR 200 MG in Sodium Chloride 0.9% 250 ML IV ONE (15:30)
[2020-02-06] MEDS ORDERED: Albuterol/Ipratropium 4 GM Inhalation Spray INH PRN (15:31)
--- NOTE | 2020-02-06 15:33 | PCM.HP.2 ---
H&P History of Present Illness - General Date of Service: 02/06/20 Admit Problem/Dx: Admission Diagnosis/Problem Admission Diagnosis/Problem Hypoxia - History of Present Illness Initial Comments - Free Text/Narative: Patient is a 54-year-old female who presents to the emergency room with complaints of chest tightness, shortness of breath, fever, nausea, intermittent diarrhea and loss of appetite. Patient states that she feels like she has COVID symptoms, she has been visiting the hospital multiple times due to her recent orthopedic injury and concerned that she has been exposed to COVID-19 from her frequent visits to our facility. States other family members in her home have also had similar symptoms. Chest pain feels more like a heaviness, She also complains of shortness of breath with daily/routine activities. She has had decreased appetite associated with nausea and intermittent loose stools, as well as fevers as high as 101, currently afebrile. Patient denies any headache, change in vision, syncope or near syncope. Denies any neck stiffness/pain, back pain, abdominal pain, vomiting, constipation or dysuria. Has not noted any blood in urine or stool. Denies any chance of . Patient has been eating and drinking appropriately. In the ER she was found to be covid positive, her pulse oxy was between high 80s to low 90s on RA so she was started on oxygen 1L which improved her saturation. CTA chest showed b/l opacities likely due to COVID. Patient is being admitted for further management. By the time i saw the patient she was on RA saturating 94%. chest Pain Score (Numeric/FACES): 10 - Related Data Allergies/Adverse Reactions: Allergies Allergy/AdvReac Type Severity Reaction Status Date / Time No Known Allergies Allergy Verified 02/06/20 17:47 Home Medications: Home Meds Diclofenac Sodium [Voltaren] 75 mg PO DAILY 01/07/20 [History] traMADol [Ultram] 50 mg PO QID PRN 02/06/20 [History] Past Medical History HEENT History: Reports: None Cardiovascular History: Reports: None Respiratory History: Reports: None Gastrointestinal History: Reports: None Genitourinary History: Reports: None VACATION GUIDE History: Reports: None Musculoskeletal History: Reports: Back Pain, Chronic, Other (See Below) Other Musculoskeletal History: 2 bulging discs in back Neurological History: Reports: None Psychiatric History: Reports: None Endocrine/Metabolic History: Reports: Obesity/BMI 30+ Insulin Pump Model and Slag Worker: None Hematologic History: Reports: None Immunologic History: Reports: None Oncologic (Cancer) History: Reports: None Dermatologic History: Reports: None - Infectious Disease History Infectious Disease History: Reports: Chicken Pox - Past Surgical History Head Surgeries/Procedures: Reports: None Female Surgical History: Reports: None Musculoskeletal Surgical History: Reports: Hip Replacement, Other (See Below) Other Musculoskeletal Surgeries/Procedures:: L hip x 3 Social & Family History - Family History Family Medical History: Noncontributory - Tobacco Use Smoking Status *Q: Never Smoker - Caffeine Use Caffeine Use: Reports: Coffee - Recreational Drug Use Recreational Drug Use: No H&P Review of Systems - Review of Systems: Review Of Systems: See Below General: Reports: Fever, Malaise, Weakness, Fatigue. Denies: Chills Pulmonary: Reports: Shortness of Breath, Pleuritic Chest Pain. Denies: Cough, Sputum Cardiovascular: Reports: Chest Pain, Dyspnea on Exertion, Syncope. Denies: Palpitations, Orthopnea, Lightheadedness Gastrointestinal: Reports: Abdominal Pain, Anorexia, Diarrhea, Nausea, Vomiting. Denies: Black Stool, Bloody Stool, Hematemesis, Hematochezia Genitourinary: Denies: Frequency, Burning, Pain Musculoskeletal: Denies: Shoulder Pain, Arm Pain, Back Pain Exam - Exam Exam: See Below - Vital Signs Vital Signs: Last Vital Signs Temp 35.7 C L 02/06/20 10:56 Pulse 85 02/06/20 13:20 Resp 16 02/06/20 11:38 BP 155/87 H 02/06/20 12:08 Pulse Ox 90 L 02/06/20 12:08 Weight: 117.934 kg - Exam Quality Assessment: Supplemental Oxygen General: Alert, Oriented HEENT: Conjunctiva Clear Neck: Supple, Trachea Midline Lungs: Normal Respiratory Effort, Decreased Breath Sounds, Rales. No: Wheezing Cardiovascular: Regular Rate, Regular Rhythm, Normal S1, Normal S2 GI/Abdominal Exam: Normal Bowel Sounds, Soft, Non-Tender Extremities: Normal Inspection, Normal Range of Motion - Patient Data Lab Results Last 24 hrs: Laboratory Results - last 24 hr 02/06/20 02/06/20 02/06/20 Range/Units 11:20 11:20 11:55 WBC 3.96 L (4.0-11.0) K/uL RBC 4.14 L (4.30-5.90) M/uL Hgb 12.8 (12.0-16.0) g/dL Hct 38.7 (36.0-46.0) % MCV 93.5 (80.0-98.0) fL MCH 30.9 (27.0-32.0) pg MCHC 33.1 (31.0-37.0) g/dL RDW Std Deviation 49.0 (28.0-62.0) fl RDW Coeff of Marlys 14 (11.0-15.0) % Plt Count 160 (150-400) K/uL MPV 10.00 (7.40-12.00) fL Neut % (Auto) 73.2 (48.0-80.0) % Lymph % (Auto) 15.4 L (16.0-40.0) % [place] % (Auto) 10.6 (0.0-15.0) % Eos % (Auto) 0.8 (0.0-7.0) % Baso % (Auto) 0.0 (0.0-1.5) % Neut # (Auto) 2.9 (1.4-5.7) K/uL Lymph # (Auto) 0.6 (0.6-2.4) K/uL [place] # (Auto) 0.4 (0.0-0.8) K/uL Eos # (Auto) 0.0 (0.0-0.7) K/uL Baso # (Auto) 0.0 (0.0-0.1) K/uL Nucleated RBC % 0.0 /100WBC Nucleated RBCs # 0 K/uL D-Dimer, Quantitative (0.0-0.50) mg/L FEU Lactate 0.6 (0.20-2.00) mmol/L Sodium 140 (136-145) mmol/L Potassium 3.8 (3.5-5.1) mmol/L Chloride 105 (98-107) mmol/L Carbon Dioxide 27.3 (21.0-32.0) mmol/L BUN 9 (7.0-18.0) mg/dL Creatinine 0.9 (0.6-1.0) mg/dL Est Cr Clr Drug Dosing 72.94 mL/min Estimated GFR (MDRD) > 60.0 ml/min Glucose 98 (74-106) mg/dL Calcium 7.8 L (8.5-10.1) mg/dL Total Bilirubin 0.4 (0.2-1.0) mg/dL AST 40 H (15-37) IU/L ALT 65 H (14-63) IU/L Alkaline Phosphatase 63 (46-116) U/L Troponin I < 0.050 (0.000-0.056) ng/mL Total Protein 7.1 (6.4-8.2) g/dL Albumin 3.5 (3.4-5.0) g/dL Globulin 3.6 (2.6-4.0) g/dL Albumin/Globulin Ratio 1.0 (0.9-1.6) Lipase 68 L (73-393) U/L Urine Color Urine Appearance Urine pH (5.0-8.0) Ur Specific [place] (1.001-1.035) Urine Protein (NEGATIVE) mg/dL Urine Glucose (UA) (NEGATIVE) mg/dL Urine Ketones (NEGATIVE) mg/dL Urine Occult Blood (NEGATIVE) Urine Nitrite (NEGATIVE) Urine Bilirubin (NEGATIVE) Urine Urobilinogen (<2.0) EU/dL Ur Leukocyte Esterase (NEGATIVE) SARS-CoV-2 RNA (ARMANI) (NEGATIVE) 02/06/20 02/06/20 02/06/20 Range/Units 11:55 12:15 12:20 WBC (4.0-11.0) K/uL RBC (4.30-5.90) M/uL Hgb (12.0-16.0) g/dL Hct (36.0-46.0) % MCV (80.0-98.0) fL MCH (27.0-32.0) pg MCHC (31.0-37.0) g/dL RDW Std Deviation (28.0-62.0) fl RDW Coeff of Marlys (11.0-15.0) % Plt Count (150-400) K/uL MPV (7.40-12.00) fL Neut % (Auto) (48.0-80.0) % Lymph % (Auto) (16.0-40.0) % [place] % (Auto) (0.0-15.0) % Eos % (Auto) (0.0-7.0) % Baso % (Auto) (0.0-1.5) % Neut # (Auto) (1.4-5.7) K/uL Lymph # (Auto) (0.6-2.4) K/uL [place] # (Auto) (0.0-0.8) K/uL Eos # (Auto) (0.0-0.7) K/uL Baso # (Auto) (0.0-0.1) K/uL Nucleated RBC % /100WBC Nucleated RBCs # K/uL D-Dimer, Quantitative 0.85 H (0.0-0.50) mg/L FEU Lactate (0.20-2.00) mmol/L Sodium (136-145) mmol/L Potassium (3.5-5.1) mmol/L Chloride (98-107) mmol/L Carbon Dioxide (21.0-32.0) mmol/L BUN (7.0-18.0) mg/dL Creatinine (0.6-1.0) mg/dL Est Cr Clr Drug Dosing mL/min Estimated GFR (MDRD) ml/min Glucose (74-106) mg/dL Calcium (8.5-10.1) mg/dL Total Bilirubin (0.2-1.0) mg/dL AST (15-37) IU/L ALT (14-63) IU/L Alkaline Phosphatase (46-116) U/L Troponin I (0.000-0.056) ng/mL Total Protein (6.4-8.2) g/dL Albumin (3.4-5.0) g/dL Globulin (2.6-4.0) g/dL Albumin/Globulin Ratio (0.9-1.6) Lipase (73-393) U/L Urine Color YELLOW Urine Appearance CLEAR Urine pH 5.5 (5.0-8.0) Ur Specific [place] 1.020 (1.001-1.035) Urine Protein NEGATIVE (NEGATIVE) mg/dL Urine Glucose (UA) NEGATIVE (NEGATIVE) mg/dL Urine Ketones NEGATIVE (NEGATIVE) mg/dL Urine Occult Blood NEGATIVE (NEGATIVE) Urine Nitrite NEGATIVE (NEGATIVE) Urine Bilirubin NEGATIVE (NEGATIVE) Urine Urobilinogen 0.2 (<2.0) EU/dL Ur Leukocyte Esterase NEGATIVE (NEGATIVE) SARS-CoV-2 RNA (ARMANI) POSITIVE H (NEGATIVE) Result Diagrams: 02/06/20 11:20 02/06/20 11:20 Sepsis Event Note - Evaluation Sepsis Screening Result: Possible Sepsis Risk - Focused Exam Vital Signs: Vital Signs Temp Pulse Resp BP Pulse Ox 02/06/20 13:20 85 02/06/20 12:08 92 155/87 H 90 L 02/06/20 11:38 90 16 159/90 H 95 02/06/20 10:56 35.7 C L 100 16 151/73 H 93 L - Problem List (1) Hypoxia SNOMED Code(s): 287780792 ICD Code: R09.02 - HYPOXEMIA Status: Acute Current Visit: Yes Problem List Initiated/Reviewed/Updated: Yes Orders Last 24hrs: Active Orders 24 hr Category Date Time Status Admission Status [Patient Status] [ADT] Stat ADT 02/06/20 14:33 Active Ambulate [RC] ASDIRECTED Care 02/06/20 15:27 Ordered Antiembolic Devices [RC] PER UNIT ROUTINE Care 02/06/20 15:28 Ordered Cardiac Monitoring [RC] . DIRECTED Care 02/06/20 10:57 Active Oxygen Therapy [RC] PRN Care 02/06/20 15:27 Ordered RT Post Treatment Assessment [RC] Click to Edit Care 02/06/20 15:31 Ordered RT Pre-Treatment Assessment [RC] Click to Edit Care 02/06/20 15:31 Ordered VTE/DVT Education [RC] PER UNIT ROUTINE Care 02/06/20 15:27 Ordered Vital Signs [RC] Q4H Care 02/06/20 15:27 Ordered PE Chest [Ang Chest] [CT] Stat Exams 02/06/20 13:47 Ordered CBC WITH AUTO DIFF [HEME] AM Lab 02/07/20 05:11 Ordered CMP [COMPREHENSIVE METABOLIC PN,CMP] [CHEM] AM Lab 02/07/20 05:11 Ordered MAGNESIUM [CHEM] AM Lab 02/07/20 05:11 Ordered PHOSPHORUS [CHEM] AM Lab 02/07/20 05:11 Ordered Acetaminophen [TylenoL] Med 02/06/20 15:27 Ordered 650 mg PO Q4H PRN Albuterol/Ipratropium [Combivent Respimat] Med 02/06/20 15:31 Ordered See Dose Instructions INH Q4H PRN Enoxaparin [Lovenox] Med 02/06/20 15:30 Ordered 40 mg SUBCUT Q12H Ondansetron [Zofran] Med 02/06/20 15:27 Ordered 4 mg IVPUSH Q4H PRN Pantoprazole [ProTONIX IV] Med 02/07/20 09:00 Ordered 40 mg IV DAILY Remdesivir (Eua) [Remdesivir (EUA)] 100 mg Med 02/07/20 09:00 Ordered Sodium Chloride 0.9% [Normal Saline] 100 ml IV Q24H Sodium Chloride 0.9% [Saline Flush] Med 02/06/20 10:57 Active 10 ml FLUSH ASDIRECTED PRN Sodium Chloride 0.9% [Saline Flush] Med 02/06/20 10:57 Active 2.5 ml FLUSH ASDIRECTED PRN dexAMETHasone Med 02/06/20 15:30 Ordered 6 mg PO DAILY Saline Lock Insert [OM.PC] Stat Oth 02/06/20 10:57 Ordered Sequential Compression Device [OM.PC] Per Unit Routine Oth 02/06/20 15:28 Ordered Medication Orders Acetaminophen (Tylenol) 650 mg PO Q4H PRN PRN Reason: Pain (Mild 1-3)/fever Albuterol/Ipratropium (Combivent Respimat) 0 gm INH Q4H PRN PRN Reason: Dyspnea Dexamethasone (Dexamethasone) 6 mg PO DAILY JOSÉ MIGUEL Enoxaparin Sodium (Lovenox) 40 mg SUBCUT Q12H JOSÉ MIGULE Remdesivir 100 mg/ Sodium (Chloride) 100 mls @ 100 mls/hr IV Q24H JOSÉ MIGUEL Ondansetron HCl (Zofran) 4 mg IVPUSH Q4H PRN PRN Reason: Nausea/Vomiting Pantoprazole Sodium (Protonix Iv) 40 mg IV DAILY JOSÉ MIGUEL Sodium Chloride (Saline Flush) 10 ml FLUSH ASDIRECTED PRN PRN Reason: Keep Vein Open Sodium Chloride (Saline Flush) 2.5 ml FLUSH ASDIRECTED PRN PRN Reason: Keep Vein Open Assessment/Plan Comment:: 54 y/o F admitted for covid pneumonia oxygen via NC as needed to keep pulse oxy >92% start Dexamethasone, Lovenox hold off on remdesivir for now as patient is not hypoxic currently monitor and replete electrolytes as needed
[2020-02-06] MEDS ORDERED: Iopamidol 755 Mg/ML 100 ML Bottle IVPUSH ONE (15:36)
--- NOTE | 2020-02-06 16:05 | CT ---
INDICATION: Positive D-dimer. COVID positive. TECHNIQUE: CT chest pulmonary angiogram acquired with IV contrast. COMPARISON: Chest radiograph 02/06/2020 FINDINGS: Cardiovascular structures: Normal vascular enhancement of the pulmonary arteries, no sign of pulmonary embolism. Heart size is normal. Thoracic aorta is normal in caliber. Mediastinum and magdalena: There are shotty prominent as well as mildly enlarged mediastinal lymph nodes. Prominent bilateral hilar lymph nodes. Miscellaneous: 1.8 cm low-density lesion in the left thyroid lobe. Benign calcification noted in the left thyroid lobe. Lungs: No pneumothorax. There are bilateral ground-glass opacities in all lobes. Scattered patchy nodular opacities in the lower lobes and the left upper lobe. 4 mm nodule in the posterior right upper lobe (Image 269). 4 mm nodule in the right middle lobe (image 320). Pleura and pericardium: No effusions. Chest wall and axilla: No mass or adenopathy. Bones: No acute abnormality. Nonspecific 1 cm sclerotic lesion in the T3 vertebral body. Possibly a bone island. Upper abdomen: No acute abnormality. Cholecystectomy. IMPRESSION: 1. No pulmonary embolus. 2. Above described bilateral pulmonary opacities are consistent with the provided history of COVID infection. 3. Prominent to mildly enlarged mediastinal and hilar lymph nodes likely reactive to #2. Dictated by Mahesh Torres MD @ 02/06/2020 4:03:57 PM Please note that all CT scans at this facility use dose modulation, iterative reconstruction, and/or weight-based dosing when appropriate to reduce radiation dose to as low as reasonably achievable. Dictated by: Mahesh Torres MD @ 02/06/2020 16:04:26 (Electronically Signed)
[2020-02-06] MEDS: Dexamethasone 4 MG Tab PO SCH (17:21)
[2020-02-06] MEDS: Enoxaparin 40 MG/0.4 ML Syringe SUBCUT SCH (17:22)
[2020-02-06] MEDS ORDERED: Morphine 2 MG/ML SYRINGE IVPUSH PRN (18:18)
[2020-02-07] MEDS: Enoxaparin 40 MG/0.4 ML Syringe SUBCUT SCH (05:00)
[2020-02-07 06:49] LABS: BLOOD UREA NITROGEN,BUN 10 mg/dL (7.0-18.0); CARBON DIOXIDE,CO2 26.6 mmol/L (21.0-32.0); CHLORIDE,CL 105 mmol/L (98-107); GLUCOSE RANDOM 119 mg/dL (74-106); POTASSIUM,K 4.3 mmol/L (3.5-5.1); SODIUM,NA 141 mmol/L (136-145)
[2020-02-07] MEDS: Dexamethasone 4 MG Tab PO SCH (08:37)
[2020-02-07] MEDS ORDERED: Pantoprazole 40 MG Vial IV SCH (09:00)
[2020-02-07] MEDS ORDERED: REMDESIVIR 100 MG in Sodium Chloride 0.9% 100 ML IV SCH (09:00)
--- NOTE | 2020-02-07 13:00 | PCM.PN ---
- General Info Date of Service: 02/07/20 Admission Dx/Problem (Free Text): Admission Diagnosis/Problem Admission Diagnosis/Problem Hypoxia Subjective Update: seen at bedside, on RA, feels well, overnight she dropped to high 80s when sleeping but now is on RA, discussed with patient if she is willing to let me start Remdesivir, patient prefers not to start it since she feels much better and isnt needing supplemental oxygen. Wants to go home - Review of Systems General: Reports: Fatigue. Denies: Fever, Weakness, Malaise, Chills Pulmonary: Denies: Shortness of Breath, Pleuritic Chest Pain, Cough Cardiovascular: Denies: Chest Pain, Palpitations, Dyspnea on Exertion Gastrointestinal: Denies: Abdominal Pain, Constipation, Decreased Appetite Genitourinary: Denies: Dysuria, Frequency, Burning, Pain Musculoskeletal: Denies: Neck Pain, Shoulder Pain, Arm Pain, Hand Pain Skin: Denies: Cyanosis, Jaundice, Mottled - Patient Data Vitals - Most Recent: Last Vital Signs Temp 36.5 C 02/07/20 08:00 Pulse 75 02/07/20 08:00 Resp 16 02/07/20 08:00 BP 142/84 H 02/07/20 08:00 Pulse Ox 91 L 02/07/20 08:00 Weight - Most Recent: 117.934 kg I&O - Last 24 Hours: Intake & Output 02/06/20 02/07/20 02/07/20 22:59 06:59 14:59 Intake Total 1000 Output Total 200 Balance 800 Lab Results Last 24 Hours: Laboratory Results - last 24 hr 02/06/20 02/06/20 02/06/20 Range/Units 11:55 12:15 16:18 WBC (4.0-11.0) K/uL RBC (4.30-5.90) M/uL Hgb (12.0-16.0) g/dL Hct (36.0-46.0) % MCV (80.0-98.0) fL MCH (27.0-32.0) pg MCHC (31.0-37.0) g/dL RDW Std Deviation (28.0-62.0) fl RDW Coeff of Marlys (11.0-15.0) % Plt Count (150-400) K/uL MPV (7.40-12.00) fL Neut % (Auto) (48.0-80.0) % Lymph % (Auto) (16.0-40.0) % [place] % (Auto) (0.0-15.0) % Eos % (Auto) (0.0-7.0) % Baso % (Auto) (0.0-1.5) % Neut # (Auto) (1.4-5.7) K/uL Lymph # (Auto) (0.6-2.4) K/uL [place] # (Auto) (0.0-0.8) K/uL Eos # (Auto) (0.0-0.7) K/uL Baso # (Auto) (0.0-0.1) K/uL Nucleated RBC % /100WBC Nucleated RBCs # K/uL D-Dimer, Quantitative 0.85 H (0.0-0.50) mg/L FEU Sodium (136-145) mmol/L Potassium (3.5-5.1) mmol/L Chloride (98-107) mmol/L Carbon Dioxide (21.0-32.0) mmol/L BUN (7.0-18.0) mg/dL Creatinine (0.6-1.0) mg/dL Est Cr Clr Drug Dosing mL/min Estimated GFR (MDRD) ml/min Glucose (74-106) mg/dL Calcium (8.5-10.1) mg/dL Phosphorus (2.6-4.7) mg/dL Magnesium (1.8-2.4) mg/dL Total Bilirubin (0.2-1.0) mg/dL AST (15-37) IU/L ALT (14-63) IU/L Alkaline Phosphatase (46-116) U/L Troponin I < 0.050 (0.000-0.056) ng/mL Total Protein (6.4-8.2) g/dL Albumin (3.4-5.0) g/dL Globulin (2.6-4.0) g/dL Albumin/Globulin Ratio (0.9-1.6) SARS-CoV-2 RNA (ARMANI) POSITIVE H (NEGATIVE) 02/07/20 02/07/20 Range/Units 06:05 06:05 WBC 2.03 L (4.0-11.0) K/uL RBC 4.03 L (4.30-5.90) M/uL Hgb 12.1 (12.0-16.0) g/dL Hct 37.5 (36.0-46.0) % MCV 93.1 (80.0-98.0) fL MCH 30.0 (27.0-32.0) pg MCHC 32.3 (31.0-37.0) g/dL RDW Std Deviation 48.0 (28.0-62.0) fl RDW Coeff of Marlys 14 (11.0-15.0) % Plt Count 186 (150-400) K/uL MPV 9.70 (7.40-12.00) fL Neut % (Auto) 68.0 (48.0-80.0) % Lymph % (Auto) 24.6 (16.0-40.0) % [place] % (Auto) 7.4 (0.0-15.0) % Eos % (Auto) 0.0 (0.0-7.0) % Baso % (Auto) 0.0 (0.0-1.5) % Neut # (Auto) 1.4 (1.4-5.7) K/uL Lymph # (Auto) 0.5 L (0.6-2.4) K/uL [place] # (Auto) 0.2 (0.0-0.8) K/uL Eos # (Auto) 0.0 (0.0-0.7) K/uL Baso # (Auto) 0.0 (0.0-0.1) K/uL Nucleated RBC % 0.0 /100WBC Nucleated RBCs # 0 K/uL D-Dimer, Quantitative (0.0-0.50) mg/L FEU Sodium 141 (136-145) mmol/L Potassium 4.3 (3.5-5.1) mmol/L Chloride 105 (98-107) mmol/L Carbon Dioxide 26.6 (21.0-32.0) mmol/L BUN 10 (7.0-18.0) mg/dL Creatinine 0.7 (0.6-1.0) mg/dL Est Cr Clr Drug Dosing 93.45 mL/min Estimated GFR (MDRD) > 60.0 ml/min Glucose 119 H (74-106) mg/dL Calcium 8.0 L (8.5-10.1) mg/dL Phosphorus 3.8 (2.6-4.7) mg/dL Magnesium 2.2 (1.8-2.4) mg/dL Total Bilirubin 0.4 (0.2-1.0) mg/dL AST 28 (15-37) IU/L ALT 51 (14-63) IU/L Alkaline Phosphatase 57 (46-116) U/L Troponin I (0.000-0.056) ng/mL Total Protein 6.9 (6.4-8.2) g/dL Albumin 3.2 L (3.4-5.0) g/dL Globulin 3.7 (2.6-4.0) g/dL Albumin/Globulin Ratio 0.9 (0.9-1.6) SARS-CoV-2 RNA (ARMANI) (NEGATIVE) Med Orders - Current: Current Medications Acetaminophen (Tylenol) 650 mg PO Q4H PRN PRN Reason: Pain (Mild 1-3)/fever Albuterol/Ipratropium (Combivent Respimat) 0 gm INH Q4H PRN PRN Reason: Dyspnea Dexamethasone (Dexamethasone) 6 mg PO DAILY [facility] Last Admin: 02/07/20 08:37 Dose: 6 mg Documented by: Enoxaparin Sodium (Lovenox) 40 mg SUBCUT Q12H [facility] Last Admin: 02/07/20 05:00 Dose: 40 mg Documented by: Morphine Sulfate (Morphine) 1 mg IVPUSH Q6H PRN PRN Reason: Pain Last Admin: 02/07/20 08:29 Dose: 1 mg Documented by: Ondansetron HCl (Zofran) 4 mg IVPUSH Q4H PRN PRN Reason: Nausea/Vomiting Pantoprazole Sodium (Protonix Iv) 40 mg IV DAILY [facility] Last Admin: 02/07/20 08:39 Dose: 40 mg Documented by: Sodium Chloride (Saline Flush) 10 ml FLUSH ASDIRECTED PRN PRN Reason: Keep Vein Open Sodium Chloride (Saline Flush) 2.5 ml FLUSH ASDIRECTED PRN PRN Reason: Keep Vein Open Discontinued Medications Aspirin (Aspirin) 324 mg PO ONETIME ONE Stop: 02/06/20 11:20 Last Admin: 02/06/20 12:16 Dose: 324 mg Documented by: Sodium Chloride (Normal Saline) 1,000 mls @ 999 mls/hr IV STAT ONE Stop: 02/06/20 12:19 Last Admin: 02/06/20 12:16 Dose: 999 mls/hr Documented by: Remdesivir 200 mg/ Sodium (Chloride) 250 mls @ 250 mls/hr IV ONETIME ONE Stop: 02/06/20 15:31 Last Admin: 02/06/20 17:51 Dose: Not Given Documented by: Remdesivir 100 mg/ Sodium (Chloride) 100 mls @ 100 mls/hr IV Q24H JOSÉ MIGUEL Iopamidol (Isovue-370 (76%)) 100 ml IVPUSH ONETIME ONE Stop: 02/06/20 15:37 Last Admin: 02/06/20 15:36 Dose: 100 ml Documented by: Ondansetron HCl (Zofran) 4 mg IVPUSH ONETIME ONE Stop: 02/06/20 11:20 Last Admin: 02/06/20 12:16 Dose: 4 mg Documented by: - Exam Quality Assessment: No: Supplemental Oxygen General: Alert, Oriented Lungs: Clear to Auscultation, Normal Respiratory Effort. No: Decreased Breath Sounds, Crackles, Rales GI/Abdominal Exam: Normal Bowel Sounds, Soft, Non-Tender Extremities: Normal Inspection, Normal Range of Motion Sepsis Event Note - Evaluation Sepsis Screening Result: No Definite Risk - Focused Exam Vital Signs: Vital Signs Temp Pulse Resp BP Pulse Ox 02/07/20 08:00 36.5 C 75 16 142/84 H 91 L 02/07/20 05:47 36.8 C 70 16 107/61 94 L 02/07/20 01:00 36.8 C 83 15 129/63 90 L - Problem List & Annotations (1) Hypoxia SNOMED Code(s): 321935608 Code(s): R09.02 - HYPOXEMIA Status: Acute Current Visit: Yes - Problem List Review Problem List Initiated/Reviewed/Updated: Yes - My Orders Last 24 Hours: My Active Orders 02/06/20 15:27 Ambulate [RC] ASDIRECTED Oxygen Therapy [RC] PRN VTE/DVT Education [RC] PER UNIT ROUTINE Vital Signs [RC] Q4H Acetaminophen [TylenoL] 650 mg PO Q4H PRN Ondansetron [Zofran] 4 mg IVPUSH Q4H PRN 02/06/20 15:28 Antiembolic Devices [RC] PER UNIT ROUTINE Sequential Compression Device [OM.PC] Per Unit Routine 02/06/20 15:30 Enoxaparin [Lovenox] 40 mg SUBCUT Q12H dexAMETHasone 6 mg PO DAILY 02/06/20 15:31 RT Post Treatment Assessment [RC] Click to Edit RT Pre-Treatment Assessment [RC] Click to Edit Albuterol/Ipratropium [Combivent Respimat] See Dose Instructions INH Q4H PRN 02/06/20 15:33 RT Incentive Spirometry [RC] Q1HWA 02/06/20 16:22 Telemetry Monitoring [Cardiac Monitoring] [RC] Q8H 02/06/20 18:18 Morphine 1 mg IVPUSH Q6H PRN 02/07/20 09:00 Pantoprazole [ProTONIX IV] 40 mg IV DAILY - Plan Plan:: 54 y/o F admitted for covid pneumonia On RA now, juan check for ambulatory pulse oxy cont Dexamethasone, Lovenox hold off on remdesivir for now as patient prefers not to have it and is currently not hypoxic monitor and replete electrolytes as needed Possible dc today
--- NOTE | 2020-02-07 13:00 | PCM.DCSUM1 ---
Discharge Summary - Hospital Course Free Text/Narrative:: Patient is a 54-year-old female who presents to the emergency room with complaints of chest tightness, shortness of breath, fever, nausea, intermittent diarrhea and loss of appetite. Patient states that she feels like she has COVID symptoms, she has been visiting the hospital multiple times due to her recent orthopedic injury and concerned that she has been exposed to COVID-19 from her frequent visits to our facility. States other family members in her home have also had similar symptoms. Chest pain feels more like a heaviness, She also complains of shortness of breath with daily/routine activities. She has had decreased appetite associated with nausea and intermittent loose stools, as well as fevers as high as 101, currently afebrile. Patient denies any headache, change in vision, syncope or near syncope. Denies any neck stiffness/pain, back pain, abdominal pain, vomiting, constipation or dysuria. Has not noted any blood in urine or stool. Denies any chance of . Patient has been eating and drinking appropriately. In the ER she was found to be covid positive, her pulse oxy was between high 80s to low 90s on RA so she was started on oxygen 1L which improved her saturation. CTA chest showed b/l opacities likely due to COVID. Patient is being admitted for further management. By the time i saw the patient she was on RA saturating 94%. Patient was admitted for overnight observation. Remdesivir was held as patient was not hypoxic and patient preffered to hold off unless she gets worse. Patients pulse oxy did drop overnight while sleeping very briefly, remdesivir was offereed but patient declined, states she feels much b sherry, and prefferd to isolate at home. Patient was instructed to watch her oxygen status twice a day and to return to ER if she gets worse, feels sob. Patient was comfortable on ambulation and was medically stable for dc on oral steroids. - Discharge Data Discharge Date: 02/07/20 Discharge Disposition: Home, Self-Care 01 Condition: Stable - Referral to Home Health Primary Care Physician: PCP None - Discharge Diagnosis/Problem(s) (1) Hypoxia SNOMED Code(s): 840345292 ICD Code: R09.02 - HYPOXEMIA Status: Acute - Discharge Plan Prescriptions/Med Rec: Aspirin 81 mg PO DAILY #30 tab.chew dexAMETHasone [Dexamethasone] 6 mg PO DAILY #9 tablet Home Medications: Home Meds Diclofenac Sodium [Voltaren] 75 mg PO DAILY 01/07/20 [History] traMADol [Ultram] 50 mg PO QID PRN 02/06/20 [History] Aspirin 81 mg PO DAILY #30 tab.chew 02/07/20 [Rx] dexAMETHasone [Dexamethasone] 6 mg PO DAILY #9 tablet 02/07/20 [Rx] Patient Handouts: COVID-19 Frequently Asked Questions, COVID-19, COVID-19: How to Protect Yourself and Others - CDC, Coronavirus Information 07/20/19, Dexam ethasone tablets, Aspirin capsules or tablets extended release, Prevent the Spread of COVID-19 if You Are Sick - [facility] Referrals: PCP,None [Primary Care Provider] - - Discharge Summary/Plan Comment DC Time >30 min.: No - Patient Data Vitals - Most Recent: Last Vital Signs Temp 36.5 C 02/07/20 08:00 Pulse 75 02/07/20 08:00 Resp 16 02/07/20 08:00 BP 142/84 H 02/07/20 08:00 Pulse Ox 91 L 02/07/20 08:00 Weight - Most Recent: 117.934 kg I&O - Last 24 hours: Intake & Output 02/06/20 02/07/20 02/07/20 22:59 06:59 14:59 Intake Total 1000 Output Total 200 Balance 800 Lab Results - Last 24 hrs: Laboratory Results - last 24 hr 02/06/20 02/06/20 02/06/20 Range/Units 11:55 12:15 16:18 WBC (4.0-11.0) K/uL RBC (4.30-5.90) M/uL Hgb (12.0-16.0) g/dL Hct (36.0-46.0) % MCV (80.0-98.0) fL MCH (27.0-32.0) pg MCHC (31.0-37.0) g/dL RDW Std Deviation (28.0-62.0) fl RDW Coeff of Marlys (11.0-15.0) % Plt Count (150-400) K/uL MPV (7.40-12.00) fL Neut % (Auto) (48.0-80.0) % Lymph % (Auto) (16.0-40.0) % Walsh % (Auto) (0.0-15.0) % Eos % (Auto) (0.0-7.0) % Baso % (Auto) (0.0-1.5) % Neut # (Auto) (1.4-5.7) K/uL Lymph # (Auto) (0.6-2.4) K/uL Walsh # (Auto) (0.0-0.8) K/uL Eos # (Auto) (0.0-0.7) K/uL Baso # (Auto) (0.0-0.1) K/uL Nucleated RBC % /100WBC Nucleated RBCs # K/uL D-Dimer, Quantitative 0.85 H (0.0-0.50) mg/L FEU Sodium (136-145) mmol/L Potassium (3.5-5.1) mmol/L Chloride (98-107) mmol/L Carbon Dioxide (21.0-32.0) mmol/L BUN (7.0-18.0) mg/dL Creatinine (0.6-1.0) mg/dL Est Cr Clr Drug Dosing mL/min Estimated GFR (MDRD) ml/min Glucose (74-106) mg/dL Calcium (8.5-10.1) mg/dL Phosphorus (2.6-4.7) mg/dL Magnesium (1.8-2.4) mg/dL Total Bilirubin (0.2-1.0) mg/dL AST (15-37) IU/L ALT (14-63) IU/L Alkaline Phosphatase (46-116) U/L Troponin I < 0.050 (0.000-0.056) ng/mL Total Protein (6.4-8.2) g/dL Albumin (3.4-5.0) g/dL Globulin (2.6-4.0) g/dL Albumin/Globulin Ratio (0.9-1.6) SARS-CoV-2 RNA (ARMANI) POSITIVE H (NEGATIVE) 02/07/20 02/07/20 Range/Units 06:05 06:05 WBC 2.03 L (4.0-11.0) K/uL RBC 4.03 L (4.30-5.90) M/uL Hgb 12.1 (12.0-16.0) g/dL Hct 37.5 (36.0-46.0) % MCV 93.1 (80.0-98.0) fL MCH 30.0 (27.0-32.0) pg MCHC 32.3 (31.0-37.0) g/dL RDW Std Deviation 48.0 (28.0-62.0) fl RDW Coeff of Marlys 14 (11.0-15.0) % Plt Count 186 (150-400) K/uL MPV 9.70 (7.40-12.00) fL Neut % (Auto) 68.0 (48.0-80.0) % Lymph % (Auto) 24.6 (16.0-40.0) % Walsh % (Auto) 7.4 (0.0-15.0) % Eos % (Auto) 0.0 (0.0-7.0) % Baso % (Auto) 0.0 (0.0-1.5) % Neut # (Auto) 1.4 (1.4-5.7) K/uL Lymph # (Auto) 0.5 L (0.6-2.4) K/uL Walsh # (Auto) 0.2 (0.0-0.8) K/uL Eos # (Auto) 0.0 (0.0-0.7) K/uL Baso # (Auto) 0.0 (0.0-0.1) K/uL Nucleated RBC % 0.0 /100WBC Nucleated RBCs # 0 K/uL D-Dimer, Quantitative (0.0-0.50) mg/L FEU Sodium 141 (136-145) mmol/L Potassium 4.3 (3.5-5.1) mmol/L Chloride 105 (98-107) mmol/L Carbon Dioxide 26.6 (21.0-32.0) mmol/L BUN 10 (7.0-18.0) mg/dL Creatinine 0.7 (0.6-1.0) mg/dL Est Cr Clr Drug Dosing 93.45 mL/min Estimated GFR (MDRD) > 60.0 ml/min Glucose 119 H (74-106) mg/dL Calcium 8.0 L (8.5-10.1) mg/dL Phosphorus 3.8 (2.6-4.7) mg/dL Magnesium 2.2 (1.8-2.4) mg/dL Total Bilirubin 0.4 (0.2-1.0) mg/dL AST 28 (15-37) IU/L ALT 51 (14-63) IU/L Alkaline Phosphatase 57 (46-116) U/L Troponin I (0.000-0.056) ng/mL Total Protein 6.9 (6.4-8.2) g/dL Albumin 3.2 L (3.4-5.0) g/dL Globulin 3.7 (2.6-4.0) g/dL Albumin/Globulin Ratio 0.9 (0.9-1.6) SARS-CoV-2 RNA (ARMANI) (NEGATIVE) Med Orders - Current: Current Medications Acetaminophen (Tylenol) 650 mg PO Q4H PRN PRN Reason: Pain (Mild 1-3)/fever Albuterol/Ipratropium (Combivent Respimat) 0 gm INH Q4H PRN PRN Reason: Dyspnea Dexamethasone (Dexamethasone) 6 mg PO DAILY [facility] Last Admin: 02/07/20 08:37 Dose: 6 mg Documented by: Enoxaparin Sodium (Lovenox) 40 mg SUBCUT Q12H [facility] Last Admin: 02/07/20 05:00 Dose: 40 mg Documented by: Morphine Sulfate (Morphine) 1 mg IVPUSH Q6H PRN PRN Reason: Pain Last Admin: 02/07/20 08:29 Dose: 1 mg Documented by: Ondansetron HCl (Zofran) 4 mg IVPUSH Q4H PRN PRN Reason: Nausea/Vomiting Pantoprazole Sodium (Protonix Iv) 40 mg IV DAILY [facility] Last Admin: 02/07/20 08:39 Dose: 40 mg Documented by: Sodium Chloride (Saline Flush) 10 ml FLUSH ASDIRECTED PRN PRN Reason: Keep Vein Open Sodium Chloride (Saline Flush) 2.5 ml FLUSH ASDIRECTED PRN PRN Reason: Keep Vein Open Discontinued Medications Aspirin (Aspirin) 324 mg PO ONETIME ONE Stop: 02/06/20 11:20 Last Admin: 02/06/20 12:16 Dose: 324 mg Documented by: Sodium Chloride (Normal Saline) 1,000 mls @ 999 mls/hr IV STAT ONE Stop: 02/06/20 12:19 Last Admin: 02/06/20 12:16 Dose: 999 mls/hr Documented by: Remdesivir 200 mg/ Sodium (Chloride) 250 mls @ 250 mls/hr IV ONETIME ONE Stop: 02/06/20 15:31 Last Admin: 02/06/20 17:51 Dose: Not Given Documented by: Remdesivir 100 mg/ Sodium (Chloride) 100 mls @ 100 mls/hr IV Q24H JOSÉ MIGUEL Iopamidol (Isovue-370 (76%)) 100 ml IVPUSH ONETIME ONE Stop: 02/06/20 15:37 Last Admin: 02/06/20 15:36 Dose: 100 ml Documented by: Ondansetron HCl (Zofran) 4 mg IVPUSH ONETIME ONE Stop: 02/06/20 11:20 Last Admin: 02/06/20 12:16 Dose: 4 mg Documented by:
== END 2020-02-07 15:20 | disposition home or self-care (01) | DRG 177 ==
LOC: MW.ED 10:46 → MW.MS 14:50
PROVIDERS: ADMIT Student in an Organized Health Care Education/Training Program; ATTEND Student in an Organized Health Care Education/Training Program
DX: U07.1 COVID-19 (principal); J12.89 Other viral pneumonia; G89.29 Other chronic pain; M54.9 Dorsalgia, unspecified; E66.9 Obesity, unspecified; Z96.642 Presence of left artificial hip joint; Z68.38 Body mass index [BMI] 38.0-38.9, adult
CPT/HCPCS: 36415; 71045; 71045-26; 71275; 71275-26; 80053; 81003; 83605; 83690; 83735; 84100; 84484; 85025; 85379; 93005; 93010; 96361; 96374; 99221; 99238; 99284; 99285-25; A9270-GY; C9113; J1650; J2270; J2405; J7030; J8540; Q9967; U0002

== ENCOUNTER 2020-07-27 19:43 | Emergency (ER) | payer SELFPAY ==
[2020-07-27] MEDS ORDERED: Ketorolac 15 MG/ML SDV IVPUSH ONE (20:03)
[2020-07-27] MEDS ORDERED: Sodium Chloride 0.9% 1,000 ML IV ONE (20:03)
[2020-07-27] MEDS ORDERED: Sodium Chloride 0.9% 2.5 ML Syringe FLUSH PRN (20:03)
[2020-07-27] MEDS ORDERED: Sodium Chloride 0.9% 10 ML Syringe FLUSH PRN (20:03)
[2020-07-27] MEDS ORDERED: Ketorolac 30 MG/ML SDV IM STA (20:09)
--- NOTE | 2020-07-27 21:05 | CR ---
INDICATION: Chest pain. TECHNIQUE: Chest 1 view Comparison: 02/06/2020 Findings: Cardiac silhouette is top-normal in size, similar to prior. No focal lung consolidation, pleural effusion or pneumothorax. Bones are unremarkable for age. Impression: No acute cardiopulmonary abnormality. Dictated by Matt Urbano MD @ Jul 27 2020 9:02PM Signed by Dr. Matt Urbano @ Jul 27 2020 9:04PM
[2020-07-27 21:09] LABS: BLOOD UREA NITROGEN,BUN 15 mg/dL (7.0-18.0); CARBON DIOXIDE,CO2 24.5 mmol/L (21.0-32.0); CHLORIDE,CL 104 mmol/L (98-107); GLUCOSE RANDOM 101 mg/dL (74-106); POTASSIUM,K 3.9 mmol/L (3.5-5.1); SODIUM,NA 138 mmol/L (136-145)
[2020-07-27] MEDS ORDERED: Iopamidol 755 MG/ML 500 ML Multipack Bottle IVPUSH STA (22:13)
--- NOTE | 2020-07-27 22:36 | CT ---
INDICATION: Headache COMPARISON: None available. TECHNIQUE: CT examination of the head was performed with 5 mm thick axial and 2 mm thick coronal and sagittal sections without intravenous contrast. Images were obtained from the vertex of the skull through the skull base, and I examined the images with the brain and bone windows. Please note that all CT scans at this facility use dose modulation, iterative reconstruction, and/or weight-based dosing when appropriate to reduce radiation dose to as low as reasonably achievable. FINDINGS: : The brain is normal in appearance for the patient`s age on today`s study, with no sign of mass lesion, mass effect, hemorrhage, or edema. The ventricles and sulci are normal in appearance for the patient`s age. Incidental note is made of a partially empty sella, a common finding in a patient of this age. The visualized portions of the orbits are normal in appearance. The visualized portions of the paranasal sinuses and mastoids are clear. The osseous structures are normal in their appearance with no sign of abnormality in the skull base or calvarium. IMPRESSION: Normal noncontrast CT of the head for the patient`s age. Nothing seen to correlate with the history of headache. Please note that all CT scans at this facility use dose modulation, iterative reconstruction, and/or weight-based dosing when appropriate to reduce radiation dose to as low as reasonably achievable. Dictated by Prashant Benitez MD @ Jul 27 2020 10:32PM Signed by Dr. Prashant Benitez @ Jul 27 2020 10:35PM
--- NOTE | 2020-07-27 22:45 | CT ---
INDICATION: Chest pain with elevated D-dimer. Previous history of COVID-19. COMPARISON: 02/06/2020 TECHNIQUE: CT examination of the chest was performed with the uneventful intravenous administration of 100 cc of Isovue 370 while 3 mm thick axial sections were obtained through the pulmonary arteries. Please note that all CT scans at this facility use dose modulation, iterative reconstruction, and/or weight-based dosing when appropriate to reduce radiation dose to as low as reasonably achievable. FINDINGS: : There is no sign of pulmonary embolism, with normal enhancement and branching of the pulmonary arteries. The lungs are clear with no sign of significant infiltrate or mass. The previously seen mild patchy bilateral perihilar and peripheral infiltrates have resolved with no sign of any scarring. There is no sign of mediastinal or hilar mass or adenopathy. The previously seen left greater than right hilar adenopathy and mild mediastinal adenopathy have resolved. There is no change in mild aneurysmal dilatation of the ascending thoracic aorta with maximal diameter of 4.2 centimeters. The aortic arch and descending thoracic aorta are normal in appearance. There is no sign of aortic dissection. The ascending great vessels remain normal in appearance. There is no sign of supraclavicular or axillary mass or adenopathy. Again seen is fullness of the lower pole of the left lobe of the thyroid with low density and a small calcification, suggesting an thyroid nodule. This can be further evaluated with ultrasound on a nonemergent basis. The visualized superior liver, spleen, pancreas, kidneys, and adrenals are normal in appearance. Clips are again seen in the gall bladder fossa from cholecystectomy. There is no sign of biliary ductal dilatation. The osseous structures are normal in appearance for the patient`s age. IMPRESSION: No sign of pulmonary embolism. Stable mild aneurysmal dilatation of the ascending thoracic aorta. No sign of aortic dissection. Complete resolution of previously seen patchy ground-glass pulmonary infiltrates, hilar adenopathy, and mediastinal adenopathy. Continued fullness of the lower pole of the left lobe of the thyroid with a low-density nodule and punctate calcification. This can be further evaluated with ultrasound on a nonemergent basis. Please note that all CT scans at this facility use dose modulation, iterative reconstruction, and/or weight-based dosing when appropriate to reduce radiation dose to as low as reasonably achievable. Dictated by Prashant Benitez MD @ Jul 27 2020 10:35PM Signed by Dr. Prashant Benitez @ Jul 27 2020 10:44PM
--- NOTE | 2020-07-27 23:29 | EDM.PDOC ---
ED HPI GENERAL MEDICAL PROBLEM - General Chief Complaint: General Stated Complaint: PERSISTANT HEADACHE, CHEST PRESSURE Time Seen by Provider: 07/27/20 19:54 - History of Present Illness INITIAL COMMENTS - FREE TEXT/NARRATIVE: HISTORY AND PHYSICAL: History of present illness: This is a 54-year-old female with no history for hypertension, diabetes, cholesterol, tobacco use, family history for CAD who presents ER today secondary to chest pain that began shortly after having her knees injected 2 to 3 weeks ago. Patient reports the day after she had her knees injected she started experiencing intermittent episodes of chest pain and headache. Patient reports that she read the side effects of the medication that was injected in her knee and it was felt that her symptoms were secondary to the side effects. Patient reports that the pain feels like a pinching sensation to her chest. She reports no pain rating down her arms jaw or back. Patient denies any diaphoresis or shortness of breath. Patient denies any nausea or vomiting. Patient reports that the pain improves when she goes to the gym and exercises. Patient reports that she does aqua aerobics daily and has no pain or discomfort when she is exercising. Patient reports that the pain is sometimes exacerbated with rest. She reports no pain or discomfort with deep inspiration or coughing. Patient denies any recent fevers, shakes, chills, nausea, vomiting, diarrhea, dysuria, frequency, urgency, shortness of breath, abdominal pain. Patient reports that she has noticed that the pain in her chest is frequently related to drinking coffee. Patient denies any double vision or blurred vision. Patient denies any nuchal rigidity. Patient denies any recent head injury or head trauma. Review of systems: As per history of present illness and below otherwise all systems reviewed and negative. Past medical history: As per history of present illness and as reviewed below otherwise noncontributory. Surgical history: As per history of present illness and as reviewed below otherwise noncontributory. Social history: No reported history of drug or alcohol abuse. Family history: As per history of present illness and as reviewed below otherwise n oncontributory. Physical exam: This patient was seen and evaluated during the 2019 SARS-CoV-2 novel coronavirus pandemic period. Community viral transmission is ongoing at time of this encounter and the emergency department is operating under pandemic response procedures. Constitutional: Patient is oriented to person, place, and time. Appears well- developed and well-nourished. No distress. HEENT: Moist mucous membranes Head: Normocephalic and atraumatic Eyes: Right eye exhibits no discharge. Left eye exhibits no discharge. No scleral icterus Neck: Normal range of motion. No tracheal deviation present. Cardiovascular: Normal rate and regular rhythm. Pulmonary: Effort normal, no respiratory distress. Abdominal: No distention Musculoskeletal: Normal range of motion Neurologic: Alert and oriented to person, place and time. Skin: [place], warm and dry. Neuro: A&Ox3. Cranial nerves II-XII grossly intact, 5/5 strength to bilateral upper and lower extremities, sensation intact to bilateral upper and lower extremities, no nystagmus, PERRLA, EOMI, normal speech, proprioception intact to bilateral lower extremities,gait normal Psychiatric: Normal mood and affect. Behavior is normal. Judgment and thought content normal. Nursing note and vital signs have been reviewed Diagnostics: EKG: As interpreted by ER physician: Dl: Nonspecific ST-T wave abnormalities Normal axis No evidence of ST elevation NC Normal sinus rhythm heart rate of 90 CBC, CMP, troponin normal 2-hour troponin normal D-dimer 0.55 Chest Xray: Normal cardiac silhouette No infiltrates or effusions identified. No PTX No evidence of acute bony fracture. As interpreted by ER MD: Dl CTA of chest reveals no evidence of PE, dissection or aneurysm. Therapeutics: Toradol 15 mg IM Assessment and plan: This is a 54-year-old female who presents ER today with atypical chest pain that is been present for approximately 3 weeks since she had her knees injected. Patient saw her primary care physician earlier today and was recommended to come to the ER for cardiac evaluation. Patient has no significant cardiac history and no significant cardiac risk factors for acute coronary syndrome. Patient's presentation is low risk for coronary artery disease. Patient has a troponin level at presentation in the 2 hours or 0. Patient's EKG is normal. Patient will be discharged home with instructions to follow-up with her primary care physician for further cardiac evaluation. Reassessment at the time of disposition demonstrates that the patient is in no acute distress. The patient has remained stable throughout the entire ED visit and is without objective evidence for acute process requiring urgent intervention or hospitalization. The patient is stable for discharge, counseling is provided as documented above, discussed symptomatic treatment and specific conditions for return. I have spoken with the patient/caregiver and discussed todays findings, in addition to providing specific details for the plan of care. Questions are answered and there is agreement with the plan. Definitive disposition and diagnosis as appropriate pending reevaluation and review of above. - Related Data Allergies Allergy/AdvReac Type Severity Reaction Status Date / Time No Known Allergies Allergy Verified 07/27/20 19:52 Home Meds: Home Meds . [No Known Home Meds] 07/27/20 [History] Past Medical History - Past Health History Medical/Surgical History: Denies Medical/Surgical History HEENT History: Reports: None Cardiovascular History: Reports: None Respiratory History: Reports: None Gastrointestinal History: Reports: None Genitourinary History: Reports: None [employer] History: Reports: None Musculoskeletal History: Reports: Back Pain, Chronic, Other (See Below) Other Musculoskeletal History: 2 bulging discs in back Neurological History: Reports: None Psychiatric History: Reports: None Endocrine/Metabolic History: Reports: Obesity/BMI 30+ 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 Hematologic History: Reports: None Immunologic History: Reports: None Oncologic (Cancer) History: Reports: None Dermatologic History: Reports: None - Infectious Disease History Infectious Disease History: Reports: Chicken Pox - Past Surgical History Head Surgeries/Procedures: Reports: None Female Surgical History: Reports: None Musculoskeletal Surgical History: Reports: Hip Replacement, Other (See Below) Other Musculoskeletal Surgeries/Procedures:: L hip x 3 Social & Family History - Family History Family Medical History: No Pertinent Family History - Tobacco Use Tobacco Use Status *Q: Never Tobacco User - Caffeine Use Caffeine Use: Reports: None - Recreational Drug Use Recreational Drug Use: No ED ROS GENERAL - Review of Systems Review Of Systems: See Below ED EXAM, GENERAL - Physical Exam Exam: See Below Course - Vital Signs Last Recorded V/S: Last Vital Signs Temp 97 F 07/27/20 19:53 Pulse 97 07/27/20 22:47 Resp 18 07/27/20 19:53 BP 137/63 07/27/20 22:15 Pulse Ox 94 L 07/27/20 22:47 - Orders/Labs/Meds Orders: Active Orders 24 hr Category Date Time Status EKG Documentation Completion [RC] AM Care 07/27/20 20:03 Active Sodium Chloride 0.9% [Saline Flush] Med 07/27/20 20:03 Active 10 ml FLUSH ASDIRECTED PRN Sodium Chloride 0.9% [Saline Flush] Med 07/27/20 20:03 Active 2.5 ml FLUSH ASDIRECTED PRN Saline Lock Insert [OM.PC] Stat Oth 07/27/20 20:04 Ordered Medication Orders Sodium Chloride (Sodium Chloride 0.9% 10 Ml Syringe) 10 ml FLUSH ASDIRECTED PRN PRN Reason: Keep Vein Open Sodium Chloride (Sodium Chloride 0.9% 2.5 Ml Syringe) 2.5 ml FLUSH ASDIRECTED PRN PRN Reason: Keep Vein Open Labs: Laboratory Tests 07/27/20 07/27/20 07/27/20 Range/Units 20:26 20:26 20:26 WBC 6.69 (4.0-11.0) K/uL RBC 4.54 (4.30-5.90) M/uL Hgb 14.2 (12.0-16.0) g/dL Hct 42.2 (36.0-46.0) % MCV 93.0 (80.0-98.0) fL MCH 31.3 (27.0-32.0) pg MCHC 33.6 (31.0-37.0) g/dL RDW Std Deviation 47.4 (28.0-62.0) fl RDW Coeff of Marlys 14 (11.0-15.0) % Plt Count 243 (150-400) K/uL MPV 9.60 (7.40-12.00) fL Neut % (Auto) 66.0 (48.0-80.0) % Lymph % (Auto) 21.1 (16.0-40.0) % [place] % (Auto) 10.6 (0.0-15.0) % Eos % (Auto) 2.2 (0.0-7.0) % Baso % (Auto) 0.1 (0.0-1.5) % Neut # (Auto) 4.4 (1.4-5.7) K/uL Lymph # (Auto) 1.4 (0.6-2.4) K/uL [place] # (Auto) 0.7 (0.0-0.8) K/uL Eos # (Auto) 0.2 (0.0-0.7) K/uL Baso # (Auto) 0.0 (0.0-0.1) K/uL Nucleated RBC % 0.0 /100WBC Nucleated RBCs # 0 K/uL D-Dimer, Quantitative 0.55 H (0.0-0.50) mg/L FEU Sodium 138 (136-145) mmol/L Potassium 3.9 (3.5-5.1) mmol/L Chloride 104 (98-107) mmol/L Carbon Dioxide 24.5 (21.0-32.0) mmol/L BUN 15 (7.0-18.0) mg/dL Creatinine 0.8 (0.6-1.0) mg/dL Est Cr Clr Drug Dosing 82.06 mL/min Estimated GFR (MDRD) > 60.0 ml/min Glucose 101 (74-106) mg/dL Calcium 8.1 L (8.5-10.1) mg/dL Total Bilirubin 0.3 (0.2-1.0) mg/dL AST 11 L (15-37) IU/L ALT 22 (14-63) IU/L Alkaline Phosphatase 59 (46-116) U/L Troponin I < 0.050 (0.000-0.056) ng/mL Total Protein 7.1 (6.4-8.2) g/dL Albumin 3.5 (3.4-5.0) g/dL Globulin 3.6 (2.6-4.0) g/dL Albumin/Globulin Ratio 1.0 (0.9-1.6) 07/27/20 Range/Units 22:33 WBC (4.0-11.0) K/uL RBC (4.30-5.90) M/uL Hgb (12.0-16.0) g/dL Hct (36.0-46.0) % MCV (80.0-98.0) fL MCH (27.0-32.0) pg MCHC (31.0-37.0) g/dL RDW Std Deviation (28.0-62.0) fl RDW Coeff of Marlys (11.0-15.0) % Plt Count (150-400) K/uL MPV (7.40-12.00) fL Neut % (Auto) (48.0-80.0) % Lymph % (Auto) (16.0-40.0) % [place] % (Auto) (0.0-15.0) % Eos % (Auto) (0.0-7.0) % Baso % (Auto) (0.0-1.5) % Neut # (Auto) (1.4-5.7) K/uL Lymph # (Auto) (0.6-2.4) K/uL [place] # (Auto) (0.0-0.8) K/uL Eos # (Auto) (0.0-0.7) K/uL Baso # (Auto) (0.0-0.1) K/uL Nucleated RBC % /100WBC Nucleated RBCs # K/uL D-Dimer, Quantitative (0.0-0.50) mg/L FEU Sodium (136-145) mmol/L Potassium (3.5-5.1) mmol/L Chloride (98-107) mmol/L Carbon Dioxide (21.0-32.0) mmol/L BUN (7.0-18.0) mg/dL Creatinine (0.6-1.0) mg/dL Est Cr Clr Drug Dosing mL/min Estimated GFR (MDRD) ml/min Glucose (74-106) mg/dL Calcium (8.5-10.1) mg/dL Total Bilirubin (0.2-1.0) mg/dL AST (15-37) IU/L ALT (14-63) IU/L Alkaline Phosphatase (46-116) U/L Troponin I < 0.050 (0.000-0.056) ng/mL Total Protein (6.4-8.2) g/dL Albumin (3.4-5.0) g/dL Globulin (2.6-4.0) g/dL Albumin/Globulin Ratio (0.9-1.6) Meds: Medications Generic Name Dose Route Start Last Admin Trade Name Freq PRN Reason Stop Dose Admin Sodium Chloride 10 ml 07/27/20 20:03 Sodium Chloride 0.9% 10 Ml Syringe FLUSH ASDIRECTED PRN Keep Vein Open Sodium Chloride 2.5 ml 07/27/20 20:03 Sodium Chloride 0.9% 2.5 Ml Syringe FLUSH ASDIRECTED PRN Keep Vein Open Discontinued Medications Generic Name Dose Route Start Last Admin Trade Name Freq PRN Reason Stop Dose Admin Sodium Chloride 1,000 mls @ 999 mls/hr 07/27/20 20:03 07/27/20 20:10 Normal Saline IV 07/27/20 21:03 Not Given .Bolus ONE Iopamidol 100 ml 07/27/20 22:13 07/27/20 22:14 Iopamidol 755 Mg/Ml 500 Ml Multipack Bottle IVPUSH 07/27/20 22:14 100 ml ONETIME STA Administration Ketorolac Tromethamine 15 mg 07/27/20 20:03 07/27/20 20:10 Ketorolac 15 Mg/Ml Sdv IVPUSH 07/27/20 20:04 Not Given ONETIME ONE Ketorolac Tromethamine 15 mg 07/27/20 20:09 07/27/20 20:41 Ketorolac 30 Mg/Ml Sdv IM 07/27/20 20:10 15 mg STAT STA Administration Departure - Departure Time of Disposition: 23:29 Disposition: Home, Self-Care 01 Condition: Good Clinical Impression: Nonspecific chest pain Headache Qualifiers: Headache type: unspecified Headache chronicity pattern: unspecified pattern Intractability: not intractable Qualified Code(s): R51.9 - Headache, unspecified - Discharge Information Instructions: Nonspecific Chest Pain, Adult, General Headache Without Cause Referrals: PCP,None [Primary Care Provider] - Additional Instructions: You were seen and evaluated in the ER today for your symptoms of headache and chest pain. The work-up in the emergency department today did not reveal any emergent causes for your symptoms. You had a CT scan of your head which was normal. Your heart enzymes as well as your cardiac EKG were both normal. A CT scan of your chest reveals no evidence of blood clots or dissections or aneurysms in your chest. You will need to make an appointment with your family doctor for further cardiac referrals and evaluation. Please return the ER if you have any worsening or concerning symptoms. The following information is given to patients seen in the emergency department who are being discharged to home. This information is to outline your options for follow-up care. We provide all patients seen in our emergency department w ith a follow-up referral. The need for follow-up, as well as the timing and circumstances, are variable depending upon the specifics of your emergency department visit. If you don't have a primary care physician on staff, we will provide you with a referral. We always advise you to contact your personal physician following an emergency department visit to inform them of the circumstance of the visit and for follow-up with them and/or the need for any referrals to a consulting specialist. The emergency department will also refer you to a specialist when appropriate. This referral assures that you have the opportunity for follow-up care with a specialist. All of these measure are taken in an effort to provide you with optimal care, which includes your follow-up. Under all circumstances we always encourage you to contact your private physician who remains a resource for coordinating your care. When calling for follow-up care, please make the office aware that this follow-up is from your recent emergency room visit. If for any reason you are refused follow-up, please contact the [facility] Emergency Department at and asked to speak to the emergency department charge nurse. [facility] [address] [place] [address] [place] [address] Sepsis Event Note (ED) - Evaluation Sepsis Screening Result: No Definite Risk - Focused Exam Vital Signs: Vital Signs Temp Pulse Resp BP Pulse Ox 07/27/20 22:47 97 94 L 07/27/20 22:15 92 137/63 93 L 07/27/20 19:53 97 F 93 18 147/96 H 97 - My Orders Last 24 Hours: My Active Orders 07/27/20 20:03 EKG Documentation Completion [RC] AM Sodium Chloride 0.9% [Saline Flush] 10 ml FLUSH ASDIRECTED PRN Sodium Chloride 0.9% [Saline Flush] 2.5 ml FLUSH ASDIRECTED PRN 07/27/20 20:04 Saline Lock Insert [OM.PC] Stat - Assessment/Plan Last 24 Hours: My Active Orders 07/27/20 20:03 EKG Documentation Completion [RC] AM Sodium Chloride 0.9% [Saline Flush] 10 ml FLUSH ASDIRECTED PRN Sodium Chloride 0.9% [Saline Flush] 2.5 ml FLUSH ASDIRECTED PRN 07/27/20 20:04 Saline Lock Insert [OM.PC] Stat
== END 2020-07-27 23:42 | disposition home or self-care (01) ==
LOC: MW.ED 19:43
DX: R07.9 Chest pain, unspecified (principal); R51.9 Headache, unspecified; E66.9 Obesity, unspecified; Z68.36 Body mass index [BMI] 36.0-36.9, adult
CPT/HCPCS: 36415; 70450; 71045; 71275; 80053; 84484; 85025; 85379; 93005; 96372; 99285; J1885; Q9967; 93010; 99283